=== PATIENT | female | born 1945 | race African-American/Black ===

== ENCOUNTER 2017-07-14 13:43 | Emergency (ER) | payer BC, MEDICARE ==
[~2017-07-14 13:43] MED LIST: ISOVUE-370 76%-LOCM 1 ML ONE
[2017-07-14 14:09] LABS: #Basophils 0.1 thou/uL (0.0-0.2); #Eosinphils 0.2 thou/uL (0.0-0.7); #Lymphocytes 3.3 thou/uL (1.20-3.40); #Monocytes 0.5 thou/uL (0.11-0.59); #Neutrophils 3.8 thou/uL (1.40-6.50); %Eosinophils 2.9 % (0.0-10.0); %Lymphocytes 41.8 % (21.0-51.0); %Monocytes 5.9 % (0.0-10.0); Hematocrit 36.8 % (36.0-47.0); Mean Platelet Volume 7.8 fL (7.4-10.4); Red Blood Cell (RBC) Count 3.97 mill/uL (4.20-5.40); White Blood Cell (WBC) Count 7.8 thou/uL (4.8-10.8)
[2017-07-14 14:35] LABS: ALT (SGPT) 8 U/L (8-55); AST (SGOT) 15 U/L (5-34); Alkaline Phosphatase 71 U/L (40-150); Anion Gap 10 mmol/L (10-20); BUN (Urea Nitrogen) 13 mg/dL (9.8-20.1); Bilirubin, Total 0.3 mg/dL (0.2-1.2); Calc. Creatinine Clearance 0 mL/min (70-130); Calcium 9.6 mg/dL (7.8-10.44); Carbon Dioxide 26 mmol/L (23-31); Chloride 103 mmol/L (98-107); Estimated GFR-MDRD Greater than 90; Globulin 4.4 g/dL (2.4-3.5); Lipase 29 U/L (8-78); Protein, Total 8.3 g/dL (6.0-8.3)
[2017-07-14 15:21] LABS: Bilirubin Negative (Negative); Blood, Urine Negative (Negative); Glucose, Urine (Dipstick) Negative (Negative); Ketone, Urine Negative (Negative); Nitrite Negative (Negative); Protein, Urine (Dipstick) Negative (Neg-Trace); Urobilinogen 0.2 mg/dL (0.2-1.0)
[2017-07-14 15:22] LABS: Bacteria/HPF 1+ HPF (None Seen); Hyaline Casts/LPF 0-3 HYALINE CAST LPF (0-3 Hyaline); RBC/HPF 0-3 HPF (0-3); WBC/HPF 0-3 HPF (0-3)
--- NOTE | 2017-07-14 17:10 | CT ---
CT ABDOMEN AND PELVIS WITH IV CONTRAST: 07/14/17 HISTORY: Right lower quadrant pain. FINDINGS: The lung bases are unremarkable. The patient is post cholecystectomy and hysterectomy and left hip r eplacement. No free air, free fluid or lymphadenopathy is seen in the abdomen or pelvis. The liver, spleen, pancreas, adrenal glands and kidneys are normal. A normal appearing appendix is present. There is colonic diverticulosis. There is fecal material in the colon and rectum. There are vascular calcifications without evidence of aneurysmal dilatation of the abdominal aorta. There are degenerative changes in the spine. IMPRESSION: 1. No CT evidence of appendicitis. 2. Colonic diverticulosis. POS: [facility]
[2017-07-14] MEDS ORDERED: traMADol HCl 50 MG TAB ONE (18:02)
== END 2017-07-14 18:18 | disposition home or self-care (01) ==
LOC: ERS 13:43
DX: R19.03 Right lower quadrant abdominal swelling, mass and lump (principal); I10 Essential (primary) hypertension; Z79.82 Long term (current) use of aspirin; Z79.899 Other long term (current) drug therapy
CPT/HCPCS: 36415; 74177; 80053; 81003; 81015; 83690; 85025; 87086; 96360; 96361

== ENCOUNTER 2018-03-07 12:13 | Outpatient (CLI) | payer MEDICARE ==
--- NOTE | 2018-03-07 14:39 | RAD ---
PA AND LATERAL VIEWS CHEST: HISTORY: Preop evaluation. FINDINGS: Comparison is made with the exam of 01/13/13. The heart size is borderline. The aorta is tortuous. The lungs are well expanded without focal area s of consolidation, pneumothorax, aneudy pulmonary edema, or pleural effusions. There are degenerativ e changes in the spine. IMPRESSION: No radiographic evidence of acute cardiopulmonary process. POS: [facility]
[2018-03-07 15:19] LABS: Bilirubin Negative (Negative); Blood, Urine Negative (Negative); Clarity CLEAR (Clear); Glucose, Urine (Dipstick) Negative (Negative); Leukocyte Trace (Negative); Nitrite Negative (Negative); Protein, Urine (Dipstick) Negative (Neg-Trace); Specific Gravity, Urine 1.005 (1.002-1.036); Urobilinogen 0.2 mg/dL (0.2-1.0); pH, Urine 7.5 (5.0-9.0)
[2018-03-07 15:27] LABS: Bacteria/HPF None Seen HPF (None Seen); Hyaline Casts/LPF 0-3 HYALINE CAST LPF (0-3 Hyaline); RBC/HPF 0-3 HPF (0-3); Squamous Epithelial None Seen HPF (0-3); WBC/HPF None Seen HPF (0-3)
== END 2018-03-07 12:14 | disposition home or self-care (01) ==
LOC: LABBT 12:13
PROVIDERS: ATTEND Orthopaedic Surgery
DX: Z01.818 Encounter for other preprocedural examination (principal); M16.11 Unilateral primary osteoarthritis, right hip
CPT/HCPCS: 71046; 81001; 87081; 93005; 93010

== ENCOUNTER 2018-03-07 13:15 | Inpatient (IN) | payer MEDICARE ==
[2018-03-07 12:52] VITALS: BMI 33.2
[2018-03-19] MEDS ORDERED: Sodium Chloride 0.9% 100 ML ONE (05:58)
[2018-03-19] MEDS ORDERED: CEFAZOLIN/Water 2 GM/20 ML SYRINGE ONE (05:58)
[2018-03-19] MEDS ORDERED: Vancomycin HCl 1.5 GM in Sodium Chloride 0.9% 250 ML 300 ML IVPB SCH (06:00)
[2018-03-19] MEDS ORDERED: Midazolam HCl 2 mg/2 ml Vial ONE (06:24)
[2018-03-19] MEDS ORDERED: Fentanyl 100 MCG/2 ML VIAL ONE (06:24)
[2018-03-19] MEDS ORDERED: Zolpidem Tartrate 5 MG TAB PO PRN ×3 (07:01→12:53)
[2018-03-19] MEDS ORDERED: diphenhydrAMINE 25 MG CAP PO PRN ×3 (07:01→12:53)
[2018-03-19] MEDS ORDERED: Fentanyl 100 MCG/2 ML VIAL SLOW IVP PRN ×2 (07:01)
[2018-03-19] MEDS ORDERED: Promethazine HCl 25 MG/ML VIAL IM PRN ×4 (07:01→12:53)
[2018-03-19] MEDS ORDERED: Acetaminophen 325 MG TAB PO PRN (07:01)
[2018-03-19] MEDS ORDERED: traMADol HCl 50 MG TAB PO PRN (07:01)
[2018-03-19] MEDS ORDERED: Ondansetron HCl/PF 4 MG/2 ML Vial IVP PRN ×4 (07:01→12:53)
[2018-03-19] MEDS ORDERED: oxyCODONE/Acetaminophen 5 mg/325 mg Tablet PO PRN ×2 (07:04)
[2018-03-19] MEDS ORDERED: Docusate 100 MG CAP PO PRN (07:09)
[2018-03-19] MEDS ORDERED: Bupivacaine/Epinephrine 0.25% 30 ML VIAL ONE (07:10)
[2018-03-19] MEDS ORDERED: fentaNYL Citrate/PF 1,250 MCG, Bupivacaine 25 ML in Sodium Chloride 0.9% 250 ML 200 ML EPIDURAL SCH (07:15)
[2018-03-19] MEDS ORDERED: Hydrocerin (Eucerin) Cream 120 gm Jar TOP PRN (07:15)
[2018-03-19] MEDS ORDERED: diphenhydrAMINE 50 MG/ML VIAL IM PRN (07:15)
[2018-03-19] MEDS ORDERED: Naloxone HCl 0.4 mg/ml Vial IVP PRN (07:15)
[2018-03-19] MEDS ORDERED: diphenhydrAMINE 50 MG/ML VIAL IVP PRN (07:15)
[2018-03-19] MEDS ORDERED: Bupivacaine 0.25% 10 ML VIAL EPIDURAL PRN (07:15)
[2018-03-19] MEDS ORDERED: Promethazine HCl 25 MG SUPP PR PRN (07:15)
[2018-03-19] MEDS ORDERED: Naloxone HCl 0.4 mg/ml Vial IV PRN ×2 (07:15→12:53)
[2018-03-19] MEDS ORDERED: Tranexamic Acid 1,000 MG in Sodium Chloride 0.9% 100 ML IVPB SCH (07:15)
[2018-03-19] MEDS ORDERED: Promethazine HCl 25 MG/ML VIAL SLOW IVP PRN (07:46)
[2018-03-19] MEDS ORDERED: Multivit, Therapeutic 1 TAB PO SCH (09:00)
[2018-03-19] MEDS ORDERED: VERAPAMIL HCL PO SCH (09:00)
--- NOTE | 2018-03-19 09:17 | OP ---
DATE OF PROCEDURE: 03/19/2018 PREOPERATIVE DIAGNOSIS: End-stage bicompartmental osteoarthritis of right hip. POSTOPERATIVE DIAGNOSIS: End-stage bicompartmental osteoarthritis of right hip. OPERATIVE PROCEDURE: Press-Fit right total hip arthroplasty. SURGEON: Simone Ahn M.D. HOME HEALTH CAREGIVER: Neftali Garcia PA-C. ANESTHESIA: General via endotracheal tube augmented with indwelling epidural. COMPONENTS USED: [facility], primary Trident PSL Press-Fit cluster acetabular shell, 48 mm outer diameter, 36 mm 0-degree polyethylene fixed bearing insert, and standard offset V40 metallic fe moral head with an Accolade Press-Fit size 1 hip stem. ESTIMATED BLOOD LOSS: 250 mL. FINDINGS: End-stage severe degenerative bicompartmental disease, bone on bone arthrosis, periarticul ar osteophyte formation, large serous effusion. DRAINS: None. SPECIMENS: None. COMPLICATIONS: None. COUNTS: Correct. INDICATIONS FOR SURGERY: Kim is a 73-year-old -[place] female who has had progressive rig ht hip, groin and thigh pain amplified with standing and walking for the last 5-7 years. She has rosalio led conservative management and would like to proceed with total hip arthroplasty as definitive treat ment of pain. PROCEDURE IN DETAIL: After informed consent was obtained in the preoperative holding area, the patie nt was taken to the operative suite where general anesthesia was induced. The patient was then posit ioned in the lateral decubitus position. The hip was then prepped and draped in usual sterile fashio n. The patient received preoperative antibiotics. Prior to incision, time-out was called and all me mbers of the surgical team agreed upon site, surgeon, and patient. After this, a longitudinal incisi on was made directly over the trochanter, noted by palpation extending 2 fingerbreadths above and bel ow the trochanter. The deeper subcutaneous layer was undermined with Bovie electrocautery. The ilio tibial band was encountered and incised sharply and the plane below this was developed bluntly. A jerome retractor was placed to hold this opened. The lateral aspect of the trochanter and the abduct or muscles were encountered and then reflected anteriorly off the trochanter using Bovie electrocaute ry. Once this was completed, the anterior capsule was then encountered and identified and copious ca psulotomy was carried out, exposing the femoral neck and head. Dislocation maneuver was then performe d and an in situ provisional neck cut was then made using the oscillating saw. Attention was then tu rned to acetabular preparation and sequential reaming was carried out up to the appropriate diameter and a trial was then malleted into place with good firm resistance and no pullout. The permanent valentina tabular shell was then malleted squarely into place, as was the appropriate liner. Once completed, t he wound was copiously irrigated and attention was then turned to femoral preparation. Flexion and ex ternal rotation was performed of the exposed thigh and femoral elevators were then placed at the prox imal aspect of the wound. Canal finder was used to establish the length of the canal and sequential reaming was carried out, followed by broaching. Once the appropriate stability was established with the trial broaches with both flexion, extension and rotational stability, we did trial with neutral a nd 2 mm offset incremental necks. Once the appropriate size was decided upon, with good stability no abigail with flexion, extension, internal and external rotation and shuck being negative, we removed the femoral trial broach and malletted into place the permanent prosthesis with good firm fit, which was also stable to rotation. Again, the hip felt very stable to flexion, extension, internal and externa l rotation. Leg lengths appeared near anatomic clinically and we were quite happy with prosthesis pl acement. Copious irrigation was then carried out through the entirety of the wound. Primary closure of the abductors was accomplished with interrupted #2 Vicryl [id number] stitches and the IT ban d was then closed with interrupted #2 Vicryl, oversewn with a #2 running barbed Quill stitch. Subcut aneous fascia was closed with running barbed Quill stitch and a subcuticular Monocryl barbed Quill st itch was used for skin closure and augmented with skin cement. A sterile dressing was applied. The p rocedure was terminated without any complication. All counts were correct. The patient was awakened in the operative suite and taken to the recovery room in stable condition.
[2018-03-19] MEDS: traMADol HCl 50 MG TAB PO PRN (10:18)
[2018-03-19] MEDS: Sodium Chloride 0.9% 1,000 ML IV SCH ×2 (10:23→18:10)
[2018-03-19] MEDS: Atenolol 50 MG TAB PO SCH (10:25)
[2018-03-19] MEDS: Hydrochlorothiazide 25 MG TAB PO SCH (10:25)
[2018-03-19] MEDS: Calcium Carbonate + Vit D 1 TAB PO SCH (10:25)
[2018-03-19] MEDS: Multivitamin W/ Minerals 1 TAB PO SCH (10:25)
[2018-03-19] MEDS: Ferrous Gluconate 324 MG TAB PO SCH ×2 (10:25→19:56)
[2018-03-19] MEDS: Verapamil SR 120 MG TAB PO SCH (10:26)
[2018-03-19] MEDS: Senokot S 8.6-50 MG TAB PO SCH ×2 (10:26→19:56)
--- NOTE | 2018-03-19 10:54 | RAD ---
RIGHT HIP TWO VIEWS: HISTORY: Postop total hip. COMPARISON: None. FINDINGS: Satisfactory appearance of right hip arthroplasty with expected postoperative gas and edema. IMPRESSION: Satisfactory appearance right hip arthroplasty. POS: [facility]
[2018-03-19] MEDS ORDERED: diphenhydrAMINE 50 MG/ML VIAL IM/IV PRN (12:53)
[2018-03-19] MEDS ORDERED: fentaNYL Citrate/PF 2,000 MCG in Sodium Chloride 0.9% 60 ML IV PRN (12:53)
[2018-03-19] MEDS ORDERED: Ketorolac Tromethamine 30 MG/ML VIAL IVP PRN ×2 (12:53)
--- NOTE | 2018-03-19 13:04 | CON-2 ---
DATE OF CONSULTATION: 03/19/2018 TIME: 12:20 CODE STATUS: Full. PRIMARY CARE PHYSICIAN: Liz Mejia M.D. ATTENDING: Atul De La Rosa M.D. RESIDENT: Óscar Humphries M.D. HISTORIAN: The patient and family. CHIEF COMPLAINT: Consult for medical management. HISTORY OF PRESENT ILLNESS: This is a 73-year-old female who had progressive right hip, groin and th igh pain that has been worsening with standing or walking over the past 5-7 years. She has been jani ged conservatively, but at this time wanted to proceed with total hip arthroplasty for definitive davide atment of her pain. The patient today had a right hip replacement that was not complicated with gilmar mated blood loss of 230 mL with the finding during the surgery of end-stage severe degenerative bicom partmental disease with [id number] arthrosis with periarticular osteophyte formation and large sero us effusion. PROCEDURE IN DETAIL: After completion of surgery, she was moved to the PACU where she recovered well . Total fluids given during surgery was 1500 mL of lactated Ringer. After awaking, she was observed and then moved to the surgical floor. At this time, when she was seen in the surgical floor, she st ates that her pain feels under control and her pain felt only in her right hip and that it was curren tly a 10/10, but she is getting medication for it currently. PAST MEDICAL HISTORY: 1. Elevated BMI. 2. Osteoarthritis of knee and hips. 3. Gastroesophageal reflux disease. 4. Mixed hyperlipidemia. 5. Essential hypertension. PAST SURGICAL HISTORY: 1. Bilateral knee replacement. 2. Left hip surgery. 3. Hysterectomy. 4. Cholecystectomy. ALLERGIES: 1. TYLENOL. 2. IBUPROFEN. 3. LYRICA. MEDICATIONS: 1. Tramadol 50 mg by mouth every 8 hours as needed for pain. 2. Pantoprazole 40 mg tablet by mouth daily. 3. Multivitamin by mouth once daily. 4. Calcium carbonate and vitamin D 1 tablet by mouth daily. 5. Fish oil 1000 mg oral capsule by mouth daily. 6. Aspirin 81 mg p.o. by mouth daily. 7. Verapamil ER 120 mg oral tablet extended release. 8. HCTZ 25 mg tablet by mouth daily. 9. Atenolol 50 mg oral tablet by mouth daily. FAMILY HISTORY: The patient endorses a family history of hypertension. SOCIAL HISTORY: Denies tobacco, alcohol or drug use. The patient currently lives at home, is [place]. Her baseline status is that she was able to take care of all of her activities of daily living [facility] assistance and she has 5 children. REVIEW OF SYSTEMS: General: Denies, fever or chills. Does endorse fatigue at the moment. Eyes: D enies vision change. ENT: Denies nasal congestion, sore throat. Respiratory: Denies cough, conges tion, shortness of breath. Cardiovascular: Denies chest pain, palpitations. Gastrointestinal: End orses nausea, but denies vomiting or having a bowel movement yet. Genitourinary: Denies dysuria. S kin: Denies rash or itching. Musculoskeletal: Endorses right hip pain that is localized in the hip , aching, currently 10/10 pain, but the patient is receiving medication at this time for it. Neurolo gic: Endorses mild weakness in right leg. Psychiatric: Denies anxiety or depression. PHYSICAL EXAMINATION: VITAL SIGNS: Temperature 97.5, pulse 61, respirations 16, O2 99% on room air, blood pressure 119/74. GENERAL: Alert, oriented x3, not in acute distress and appropriately interactive. EYES: Conjunctivae within normal limits. ENT: Nasal mucosa and oropharynx are moist. NECK: Supple without lymphadenopathy. CARDIOVASCULAR: Regular rate and rhythm with no obvious murmur or gallops. RESPIRATORY: Normal effort without retractions. Clear to auscultation bilaterally. SKIN: Warm and dry without obvious lesion on her right hip at the incision site. There is no active bleeding noted and it is managed at this time. ABDOMEN: Soft, not tender to palpation. Bowel sounds heard throughout. No mass or distension felt. EXTREMITIES: No edema present. MUSCULOSKELETAL: Structure within normal limits. Muscle strength is 5/5 on left side, but 4/5 in lo wer extremities secondary to pain. NEUROLOGIC: No focal deficit observed. PSYCHIATRIC: Appropriate. LABORATORY DATA: Most recent labs taken on 03/13/2018, 1. WBC 7.7, hemoglobin 12.4, hematocrit 37.1, platelets 240,000. 2. Coags, PT 13.2, INR 1. 3. Potassium 3.5, sodium 139, chloride 104, bicarbonate 26, BUN 16, creatinine 0.74, glucose 110, ph osphorus 3.6, magnesium 1.9, calcium 9.7. 4. Urine, normal urine, pertinent only for trace leukocyte esterase. ASSESSMENT AND PLAN: 1. End-stage bicompartmental osteoarthritis of right hip, now status post right total hip arthroplas ty. Plan for ortho is that the patient is to work with rehab today to regain function of the right h ip. As for pain control, she is currently status post surgery day 0. She feels that the pain is 10/ 10 right now, but she has not received any medication yet on the floor, so we will reassess her pain level after she starts receiving p.r.n. pain medications. Incision site appears clean and we will or julio labs and continue to evaluate the surgical site for any sign of developing infection. 2. Gastroesophageal reflux disease. We will continue home pantoprazole. 3. Mixed hyperlipidemia. We will continue fish oil. 4. Essential hypertension. We will currently observe her blood pressure status post surgery and res tart her home medication of hydrochlorothiazide, atenolol and verapamil either late today or early to reginaldo. DISPOSITION AND LENGTH OF HOSPITAL STAY: Disposition and hospital length of stay will be discussed w ith Surgery, but the patient may possibly go home with either Home Health or to inpatient rehabilitat ion. Symptomatic medication will be provided and this history and physical exam as well as managemen t has been discussed with Dr. Atul De La Rosa.
[2018-03-19] MEDS ORDERED: Ondansetron HCl/PF 4 MG/2 ML Vial ONE (13:11)
[2018-03-19] MEDS ORDERED: Lidocaine 1% PF 5 ML VIAL ONE (13:11)
[2018-03-19] MEDS ORDERED: PROPOFOL 200 MG/20 ML VIAL ONE (13:11)
[2018-03-19] MEDS ORDERED: PHENYLEPHRINE-NS 100 MCG/ML 10 ML SYRINGE ONE (13:11)
[2018-03-19] MEDS: CEFAZOLIN/Water 2 GM/20 ML SYRINGE SLOW IVP SCH ×2 (13:58→21:47)
[2018-03-19] MEDS: Bupivacaine 10 ML in Sodium Chloride 0.9% 90 ML IM SCH (14:03)
[2018-03-19] MEDS ORDERED: Ketorolac Tromethamine 30 MG/ML VIAL IVP SCH ×2 (18:00)
--- NOTE | 2018-03-19 20:49 | PDOC.EVN ---
Event Note - Event Note Event Note: Patient seen and examined. Case discussed with Dr. Humphries and his consult note reviewed and repeated by me. Agree with A/P as documented in dictation. Patient is well known to me as I am her PCP. She is post-op day 0 from R hip replacement. She has well controlled HTN, HLD, GERD. Will restart her home meds. Pain control from ortho. Will follow along with you.
[2018-03-20] MEDS: Bupivacaine 10 ML in Sodium Chloride 0.9% 90 ML IM SCH ×2 (00:19→13:02)
[2018-03-20] MEDS: Sodium Chloride 0.9% 1,000 ML IV SCH ×2 (02:42→15:30)
[2018-03-20 04:49] LABS: Hemoglobin 9.9 g/dL (12.0-16.0); Mean Corpuscular HGB CONC 33.9 g/dL (32.0-36.0); Mean Corpuscular Hemoglobin 30.8 pg (27.0-31.0); Mean Corpuscular Volume 90.9 fl (81.0-99.0); Mean Platelet Volume 7.4 fL (7.4-10.4); Platelet Count 188 thou/uL (130-400); RBC Distribution Width 12.3 % (11.5-14.5); Red Blood Cell (RBC) Count 3.23 mill/uL (4.20-5.40); White Blood Cell (WBC) Count 11.3 thou/uL (4.8-10.8)
[2018-03-20] MEDS: Atenolol 50 MG TAB PO SCH (07:57)
[2018-03-20] MEDS: Senokot S 8.6-50 MG TAB PO SCH ×2 (07:58→23:25)
[2018-03-20] MEDS: Ferrous Gluconate 324 MG TAB PO SCH ×2 (07:59→23:25)
[2018-03-20] MEDS: Multivitamin W/ Minerals 1 TAB PO SCH (07:59)
[2018-03-20] MEDS: Verapamil SR 120 MG TAB PO SCH (07:59)
[2018-03-20] MEDS: Calcium Carbonate + Vit D 1 TAB PO SCH (07:59)
[2018-03-20] MEDS: Hydrochlorothiazide 25 MG TAB PO SCH (07:59)
--- NOTE | 2018-03-20 08:36 | PDOC.FM ---
- Subjective Subjective: There is borderline fever last night, high of 100.4F. However, patient denies SOB, diarrhea or pain except from surgery. She endorses working with physical therapy. Her pain is under better control. She is eating and tolerating it. She has done some walking. - Objective MAR Reviewed: Yes Vital Signs & Weight: Vital Signs (12 hours) Temp Pulse Resp BP BP Pulse Ox 03/20/18 07:57 82 114/73 03/20/18 07:22 100 F H 82 14 114/73 96 03/20/18 03:05 100.4 F H 90 16 117/64 97 03/19/18 23:39 100.2 F H 87 16 100/59 L 94 L Weight Weight 93.44 kg I&O: 03/19/18 03/20/18 03/21/18 06:59 06:59 06:59 Intake Total 1380 Output Total 1050 Balance 330 Result Diagrams: 03/20/18 03:53 <Óscar Humphries - Last Filed: 03/20/18 10:33> - Objective Vital Signs & Weight: Vital Signs (12 hours) Temp Pulse Resp BP BP Pulse Ox 03/20/18 11:35 100 F H 78 16 102/67 97 03/20/18 08:00 100.0 F H 82 14 96 03/20/18 07:57 82 114/73 03/20/18 07:22 100 F H 82 14 114/73 96 03/20/18 03:05 100.4 F H 90 16 117/64 97 Weight Weight 93.44 kg I&O: 03/19/18 03/20/18 03/21/18 06:59 06:59 06:59 Intake Total 1380 Output Total 1050 Balance 330 Result Diagrams: 03/20/18 03:53 <Atul De La Rosa - Last Filed: 03/20/18 12:14> Phys Exam - Physical Examination Constitutional: NAD HEENT: moist MMs Neck: no nodes, supple Respiratory: no wheezing, no rales, no rhonchi, clear to auscultation bilateral Cardiovascular: RRR, no significant murmur Gastrointestinal: soft, non-tender, positive bowel sounds Musculoskeletal: no edema Neurological: non-focal, moves all 4 limbs Lymphatic: no nodes Psychiatric: A&O x 3 Skin: no rash Deviation from normal: Bandaged hip. No visible discharge. <Óscar Humphries - Last Filed: 03/20/18 10:33> Dx/Plan (1) Status post right hip replacement Code(s): Z96.641 - PRESENCE OF RIGHT ARTIFICIAL HIP JOINT Status: Acute Plan: Pain better tolerated now. Patient is working with PT and has been able to ambulate. (2) GERD (gastroesophageal reflux disease) Code(s): K21.9 - GASTRO-ESOPHAGEAL REFLUX DISEASE WITHOUT ESOPHAGITIS Status: Acute Plan: Patient on protonix for GERD. Tolerating oral intake. (3) HLD (hyperlipidemia) Code(s): E78.5 - HYPERLIPIDEMIA, UNSPECIFIED Status: Acute Plan: Continue statin. (4) Essential hypertension Code(s): I10 - ESSENTIAL (PRIMARY) HYPERTENSION Status: Acute Plan: BP not elevated and under control during last night. (5) Elevated temperature Code(s): R50.9 - FEVER, UNSPECIFIED Status: Acute Plan: At this time, likely post op changes. No symptom of systemic infection. WIll continue to monitor. Will remove morrison later today. <Óscar Humphries - Last Filed: 03/20/18 10:33> Attending Addendum - Attending Addendum Date/Time: 03/20/18 1212 I personally evaluated the patient and discussed the management with Dr. Humphries. I agree with and repeated the History, Examination, Assessment and Plan documented above with any addition or exceptions noted below. Pt doing well, no n/v/chills/cp/sob/cough/congestion. Low suspicion for UTI currently. Will d/c FC as soon as possible and if continued fevers will culture. IS to bedside. HTN/GERD/HLP all stable and continue medications. DVT ppx per orthopedics. <Atul De La Rosa - Last Filed: 03/20/18 12:14>
[2018-03-20] MEDS ORDERED: Prevnar 13-Val Conj/PF 0.5 ML SYRINGE IM ONE (09:00)
--- NOTE | 2018-03-20 11:24 | PRG ---
DATE OF SERVICE: 03/20/2018 SUBJECTIVE: Kim is a 73-year-old white female who is postop day #1 right total hip arthroplasty. She is doing relatively well. She has very little in the way of complaints. She admits a little bi t more to abdominal discomfort than anything. OBJECTIVE: VITAL SIGNS: Temperature 100 degrees, pulse 82, blood pressure is 114/73, respiratory rate 14, O2 sa turation is 96% on room air. GENERAL: She is alert and oriented to person, place, time, and situation. Grossly nonfocal. NEURO: She is neurovascular intact in both lower extremities. Incision is clean and closed. No gael thema, no strikethrough is identified. Hemoglobin and hematocrit are 9.9 and 29.4. IMPRESSION: 1. A 73-year-old female postop day #1 right total hip arthroplasty. 2. Mild postoperative hemorrhagic anemia. PLAN: Continue current management, recheck tomorrow. The patient and family are desirous of home di scharge probably tomorrow or the next day.
[2018-03-21] MEDS: Bupivacaine 10 ML in Sodium Chloride 0.9% 90 ML IM SCH (01:52)
[2018-03-21] MEDS: Sodium Chloride 0.9% 1,000 ML IV SCH ×3 (03:12→20:29)
[2018-03-21 04:18] LABS: Hemoglobin 9.9 g/dL (12.0-16.0); Mean Corpuscular HGB CONC 34.2 g/dL (32.0-36.0); Mean Corpuscular Hemoglobin 31.5 pg (27.0-31.0); Mean Corpuscular Volume 92.1 fl (81.0-99.0); Mean Platelet Volume 8.1 fL (7.4-10.4); Platelet Count 186 thou/uL (130-400); RBC Distribution Width 12.4 % (11.5-14.5); Red Blood Cell (RBC) Count 3.15 mill/uL (4.20-5.40); White Blood Cell (WBC) Count 14.2 thou/uL (4.8-10.8)
[2018-03-21] MEDS: Multivitamin W/ Minerals 1 TAB PO SCH (09:14)
[2018-03-21] MEDS: Senokot S 8.6-50 MG TAB PO SCH ×2 (09:14→21:53)
[2018-03-21] MEDS: Hydrochlorothiazide 25 MG TAB PO SCH (09:15)
[2018-03-21] MEDS: Atenolol 50 MG TAB PO SCH (09:15)
[2018-03-21] MEDS: Calcium Carbonate + Vit D 1 TAB PO SCH (09:15)
[2018-03-21] MEDS: Ferrous Gluconate 324 MG TAB PO SCH ×2 (09:15→21:47)
[2018-03-21] MEDS: Verapamil SR 120 MG TAB PO SCH (09:15)
--- NOTE | 2018-03-21 09:38 | PDOC.FM ---
- Subjective Subjective: Patient seen today in bed. She says that she feels well except she needs to have a BM. She endorses feeling warm and having knee pain feeling post nasal drippage. She denies chest pain, SOB, diarrhea, or itching. - Objective MAR Reviewed: Yes Vital Signs & Weight: Vital Signs (12 hours) Temp Pulse Resp BP BP BP Pulse Ox 03/21/18 09:15 87 104/68 03/21/18 07:47 99.9 F H 87 14 104/68 97 03/21/18 00:44 100.2 F H 92 20 115/74 93 L Weight Admit Weight 93.44 kg Weight 93.44 kg I&O: 03/20/18 03/21/18 03/22/18 06:59 06:59 06:59 Intake Total 1380 Output Total 1050 1025 Balance 330 -1025 Result Diagrams: 03/21/18 03:31 <Óscar Humphries M - Last Filed: 03/21/18 09:36> - Objective Vital Signs & Weight: Vital Signs (12 hours) Temp Pulse Resp BP BP BP Pulse Ox 03/21/18 09:15 87 104/68 03/21/18 08:00 99.9 F H 87 14 97 03/21/18 07:47 99.9 F H 87 14 104/68 97 03/21/18 00:44 100.2 F H 92 20 115/74 93 L Weight Admit Weight 93.44 kg Weight 93.44 kg I&O: 18 03/21/18 03/22/18 06:59 06:59 06:59 Intake Total 1380 Output Total 1050 1025 Balance 330 -1025 Result Diagrams: 03/21/18 03:31 <Atul De La Rosa - Last Filed: 03/21/18 11:00> Phys Exam - Physical Examination Constitutional: NAD HEENT: moist MMs Neck: no nodes, supple Respiratory: no wheezing, no rales, no rhonchi Cardiovascular: RRR Gastrointestinal: soft, positive bowel sounds Musculoskeletal: no edema Neurological: non-focal, moves all 4 limbs Lymphatic: no nodes Psychiatric: normal affect Skin: no rash <Óscar Humphries - Last Filed: 03/21/18 09:36> Dx/Plan (1) Status post right hip replacement Code(s): Z96.641 - PRESENCE OF RIGHT ARTIFICIAL HIP JOINT Status: Acute Plan: Pain better tolerated now and incision dry and clean appearing. Patient is working with PT and has been able to ambulate. (2) GERD (gastroesophageal reflux disease) Code(s): K21.9 - GASTRO-ESOPHAGEAL REFLUX DISEASE WITHOUT ESOPHAGITIS Status: Acute Plan: Patient on protonix for GERD. Tolerating oral intake. (3) HLD (hyperlipidemia) Code(s): E78.5 - HYPERLIPIDEMIA, UNSPECIFIED Status: Acute Plan: Continue statin. (4) Essential hypertension Code(s): I10 - ESSENTIAL (PRIMARY) HYPERTENSION Status: Acute Plan: BP not elevated and under control during last night. (5) Elevated temperature Code(s): R50.9 - FEVER, UNSPECIFIED Status: Acute Plan: Patient had persistent fever throughout night. May be from continual epidural vs UTI. O2 saturation good with no abnormalities heard on lung exam, no edema in leg, so less likely DVT or pneumonia at this time. Plan to obtain UA and Ucx. <Óscar Humphries - Last Filed: 03/21/18 09:36> Attending Addendum - Attending Addendum Date/Time: 03/21/18 1058 I personally evaluated the patient and discussed the management with Dr. uHmphries. I agree with and repeated the History, Examination, Assessment and Plan documented above with any addition or exceptions noted below. Pt doing well, ambulating well with PT. Pain controlled. No lower urinary symptoms or flank pain. Epidural catheter still in place. FC still in place. Incision c/d/i s e/e. In light of fever will r/o UTI. Low suspicion of DVT and ppx per ortho. Epidural obviously could be a cause. Will continue to monitor. <Atul De La Rosa - Last Filed: 03/21/18 11:00>
[2018-03-21 10:51] LABS: Bilirubin Negative (Negative); Blood, Urine Trace (Negative); Clarity CLEAR (Clear); Glucose, Urine (Dipstick) Negative (Negative); Leukocyte Negative (Negative); Nitrite Negative (Negative); Protein, Urine (Dipstick) Negative (Neg-Trace); Specific Gravity, Urine 1.012 (1.002-1.036); Urobilinogen 0.2 mg/dL (0.2-1.0)
[2018-03-21 10:53] LABS: Bacteria/HPF None Seen HPF (None Seen); Hyaline Casts/LPF 4-6 HYALINE CAST LPF (0-3 Hyaline); Pathc Cast-AUWi Flag 0.58 (0-2.49); Squamous Epithelial 0-3 HPF (0-3); WBC/HPF 0-3 HPF (0-3)
[2018-03-21] MEDS: Naproxen 500 MG TAB PO PRN (22:48)
[2018-03-22 04:17] LABS: Mean Corpuscular HGB CONC 33.7 g/dL (32.0-36.0); Mean Corpuscular Hemoglobin 30.7 pg (27.0-31.0); Mean Corpuscular Volume 90.9 fl (81.0-99.0); Mean Platelet Volume 7.2 fL (7.4-10.4); Platelet Count 177 thou/uL (130-400); RBC Distribution Width 12.1 % (11.5-14.5); Red Blood Cell (RBC) Count 2.94 mill/uL (4.20-5.40); White Blood Cell (WBC) Count 12.3 thou/uL (4.8-10.8)
[2018-03-22] MEDS: Sodium Chloride 0.9% 1,000 ML IV SCH ×2 (08:02→18:54)
--- NOTE | 2018-03-22 08:59 | PDOC.FM ---
- Subjective Subjective: Patient states she's doing well, has been up, had BM, tolerating food. No urination yet, but she just had morrison pulled. She has a epidural still in. Denies SOB, chest pain, abd pain, diarrhea. - Objective Vital Signs & Weight: Vital Signs (12 hours) Temp Pulse Resp BP BP Pulse Ox 03/22/18 07:31 98.6 F 80 16 97/64 97 03/22/18 03:52 98.3 F 77 20 96/58 L 95 03/21/18 23:59 99.8 F H 88 20 94/60 95 Weight Admit Weight 93.44 kg Weight 93.44 kg I&O: 03/21/18 03/22/18 03/23/18 06:59 06:59 06:59 Output Total 1025 1900 20 Balance -1 -1899 - Result Diagrams: 03/22/18 03:57 <Óscar Humphries M - Last Filed: 03/22/18 08:57> - Objective Vital Signs & Weight: Vital Signs (12 hours) Temp Pulse Resp BP BP Pulse Ox 03/22/18 07:31 98.6 F 80 16 97/64 97 03/22/18 03:52 98.3 F 77 20 96/58 L 95 03/21/18 23:59 99.8 F H 88 20 94/60 95 Weight Admit Weight 93.44 kg Weight 93.44 kg I&O: 03/21/18 03/22/18 03/23/18 06:59 06:59 06:59 Output Total 1025 1900 20 Balance -7 -1900 Result Diagrams: 03/22/18 03:57 <Eduardo Van A - Last Filed: 03/22/18 11:00> Phys Exam - Physical Examination Constitutional: NAD HEENT: moist MMs Neck: no nodes Respiratory: no wheezing, no rales, no rhonchi Cardiovascular: RRR, no significant murmur Gastrointestinal: soft, no distention Musculoskeletal: no edema Neurological: non-focal, moves all 4 limbs Lymphatic: no nodes Psychiatric: normal affect, A&O x 3 Skin: no rash Deviation from normal: Clean right hip incision. <Óscar Humphries M - Last Filed: 03/22/18 08:57> Dx/Plan (1) Status post right hip replacement Code(s): Z96.641 - PRESENCE OF RIGHT ARTIFICIAL HIP JOINT Status: Acute Plan: Pain better tolerated now and incision dry and clean appearing. Patient is working with PT and has been able to ambulate. Patient is going home today. (2) GERD (gastroesophageal reflux disease) Code(s): K21.9 - GASTRO-ESOPHAGEAL REFLUX DISEASE WITHOUT ESOPHAGITIS Status: Acute Plan: Patient on protonix for GERD. Tolerating oral intake. (3) HLD (hyperlipidemia) Code(s): E78.5 - HYPERLIPIDEMIA, UNSPECIFIED Status: Acute Plan: Continue statin. (4) Essential hypertension Code(s): I10 - ESSENTIAL (PRIMARY) HYPERTENSION Status: Acute Plan: BP not elevated and under control during last night. (5) Elevated temperature Code(s): R50.9 - FEVER, UNSPECIFIED Status: Acute Plan: Patient had persistent fever throughout night. Likely from continual epidural. UA is negative. Patient O2 sat, BP and pulse are all within normal limit, with no unilateral leg swelling or pain to suggest DVT/PE. <Óscar Humphries - Last Filed: 03/22/18 08:57> Attending Addendum - Attending Addendum Date/Time: 03/22/18 1057 I personally evaluated the patient and discussed the management with Dr. Humphries. I agree with the History, Examination, Assessment and Plan documented above with any addition or exceptions noted below. Kim's record was reviewed. Multiple fever events noted, highest was 102F last night. Fever events are common following Total Joint Replacement surgeries and are not often clinically significant. However, the multiple fever events warrants continued monitoring. UA is negative for LE, Nitrite and WBCs. Patient is asymptomatic from an infectious standpoint. If fevers occur after POC 3 or >102, then further workup is warranted. Will discuss with the surgical team. <Eduardo Van - Last Filed: 03/22/18 11:00>
[2018-03-22] MEDS ORDERED: HYDROcodone/Acetaminophen 10/325 mg Tablet PO PRN ×2 (09:15)
[2018-03-22] MEDS: Atenolol 50 MG TAB PO SCH (09:15)
[2018-03-22] MEDS: Senokot S 8.6-50 MG TAB PO SCH ×2 (09:15→20:33)
[2018-03-22] MEDS: Calcium Carbonate + Vit D 1 TAB PO SCH (09:16)
[2018-03-22] MEDS: Verapamil SR 120 MG TAB PO SCH (09:16)
[2018-03-22] MEDS: Ferrous Gluconate 324 MG TAB PO SCH ×2 (09:16→20:30)
[2018-03-22] MEDS: Hydrochlorothiazide 25 MG TAB PO SCH (09:16)
[2018-03-22] MEDS: Multivitamin W/ Minerals 1 TAB PO SCH (09:17)
[2018-03-22] MEDS: traMADol HCl 50 MG TAB PO PRN ×3 (09:21→23:36)
[2018-03-22] MEDS: Naproxen 500 MG TAB PO PRN (14:49)
[2018-03-23] MEDS: Sodium Chloride 0.9% 1,000 ML IV SCH ×2 (01:32→11:46)
[2018-03-23 05:37] LABS: Hemoglobin 8.9 g/dL (12.0-16.0); Mean Corpuscular HGB CONC 33.7 g/dL (32.0-36.0); Mean Corpuscular Hemoglobin 30.8 pg (27.0-31.0); Mean Corpuscular Volume 91.5 fl (81.0-99.0); Mean Platelet Volume 7.7 fL (7.4-10.4); Platelet Count 219 thou/uL (130-400); RBC Distribution Width 12.3 % (11.5-14.5); Red Blood Cell (RBC) Count 2.87 mill/uL (4.20-5.40)
--- NOTE | 2018-03-23 07:48 | PDOC.FM ---
- Subjective Subjective: Patient feels well. Endorses eating, walking and pain under control. Denied fever, sob, diarrhea. Did not get any antipyretic last night. - Objective MAR Reviewed: Yes Vital Signs & Weight: Vital Signs (12 hours) Temp Pulse Resp BP Pulse Ox 03/23/18 04:24 98.7 F 95 20 114/74 96 03/23/18 00:40 98.5 F 79 20 101/64 97 03/22/18 20:34 81 104/67 03/22/18 20:00 98.6 F 81 20 03/22/18 19:57 98.6 F 75 20 93/59 L 95 Weight Admit Weight 93.44 kg Weight 93.44 kg I&O: 03/22/18 03/23/18 03/24/18 06:59 06:59 06:59 Intake Total 1380 Output Total 1900 20 Balance -1900 1360 Result Diagrams: 03/23/18 05:06 <Óscar Humphries M - Last Filed: 03/23/18 07:46> - Objective Vital Signs & Weight: Weight Admit Weight 93.44 kg Weight 93.44 kg I&O: 03/23/18 03/24/18 03/25/18 06:59 06:59 06:59 Intake Total 1380 420 Output Total 20 Balance 1360 420 Result Diagrams: 03/23/18 05:06 <Eduardo Van - Last Filed: 03/24/18 10:42> Phys Exam - Physical Examination Constitutional: NAD HEENT: moist MMs Neck: no nodes, supple Respiratory: no wheezing, no rales, no rhonchi, clear to auscultation bilateral Cardiovascular: RRR, no significant murmur Gastrointestinal: soft, non-tender Musculoskeletal: no edema Neurological: non-focal, moves all 4 limbs Lymphatic: no nodes Psychiatric: normal affect Skin: no rash <Óscar Humphries - Last Filed: 03/23/18 07:46> Dx/Plan (1) Status post right hip replacement Code(s): Z96.641 - PRESENCE OF RIGHT ARTIFICIAL HIP JOINT Status: Acute Plan: Pain better tolerated now and incision dry and clean appearing. Patient is working with PT and has been able to ambulate. Patient is going home today. (2) GERD (gastroesophageal reflux disease) Code(s): K21.9 - GASTRO-ESOPHAGEAL REFLUX DISEASE WITHOUT ESOPHAGITIS Status: Acute Plan: Patient on protonix for GERD. Tolerating oral intake. (3) HLD (hyperlipidemia) Code(s): E78.5 - HYPERLIPIDEMIA, UNSPECIFIED Status: Acute Plan: Continue home statin. (4) Essential hypertension Code(s): I10 - ESSENTIAL (PRIMARY) HYPERTENSION Status: Acute Plan: BP not elevated and under control during last night. (5) Elevated temperature Code(s): R50.9 - FEVER, UNSPECIFIED Status: Acute Plan: Resolved. Epidural removed yesterday. Has not had fever overnight. O2, respiration, pulse within normal limit and UA clean. Likely epidural related vs atelectasis. <Óscar Humphries - Last Filed: 03/23/18 07:46> Attending Addendum - Attending Addendum Date/Time: 03/24/18 1025 I personally evaluated the patient and discussed the management with Dr. Humphries on . I agree with the History, Examination, Assessment and Plan documented above with any addition or exceptions noted below. <Eduardo Van - Last Filed: 03/24/18 10:42>
[2018-03-23 08:59] VITALS: BP 113/74; TEMP 98.5
[2018-03-23] MEDS: Hydrochlorothiazide 25 MG TAB PO SCH (09:39)
[2018-03-23] MEDS: Senokot S 8.6-50 MG TAB PO SCH (09:40)
[2018-03-23] MEDS: Ferrous Gluconate 324 MG TAB PO SCH (09:40)
[2018-03-23] MEDS: Calcium Carbonate + Vit D 1 TAB PO SCH (09:40)
[2018-03-23] MEDS: Multivitamin W/ Minerals 1 TAB PO SCH (09:41)
[2018-03-23] MEDS: Atenolol 50 MG TAB PO SCH (09:41)
[2018-03-23] MEDS: Verapamil SR 120 MG TAB PO SCH (09:43)
== END 2018-03-23 12:15 | disposition home health service (06) | DRG 470 ==
LOC: SJJU 03-19 05:31
PROVIDERS: ADMIT Orthopaedic Surgery; ATTEND Orthopaedic Surgery
PROC: 0SR902A Replacement of Right Hip Joint with Metal on Polyethylene Synthetic Substitute, Uncemented, Open Approach (ICD-10-PCS; principal; 2018-03-19)
DX: M16.11 Unilateral primary osteoarthritis, right hip (principal); D62 Acute posthemorrhagic anemia; M25.751 Osteophyte, right hip; R50.82 Postprocedural fever; M25.451 Effusion, right hip; I10 Essential (primary) hypertension; K21.9 Gastro-esophageal reflux disease without esophagitis; Z96.653 Presence of artificial knee joint, bilateral; E78.2 Mixed hyperlipidemia; Z96.642 Presence of left artificial hip joint; Z79.899 Other long term (current) drug therapy; Z90.710 Acquired absence of both cervix and uterus; Z79.82 Long term (current) use of aspirin; Z88.8 Allergy status to other drugs, medicaments and biological substances; Z83.3 Family history of diabetes mellitus; Z82.49 Family history of ischemic heart disease and other diseases of the circulatory system; Z90.49 Acquired absence of other specified parts of digestive tract; Z88.6 Allergy status to analgesic agent
CPT/HCPCS: 36415; 81003; 81015; 85027; 86850; 86870; 86900; 86901; 86922; 87086; 90471; 90670; C1776; G0009; G8978-GP-CL; G8979-GP-CJ; G8987-GO-CK; G8988-GO-CJ; J2001; J2250; J2405; J2704; J3010; J3370; J3490; J7050

== ENCOUNTER 2018-03-13 08:35 | Outpatient (CLI) | payer MEDICARE ==
[2018-03-13 09:08] LABS: #Eosinphils 0.3 thou/uL (0.0-0.7); #Monocytes 0.5 thou/uL (0.11-0.59); %Basophils 0.6 % (0.0-1.0); %Eosinophils 3.4 % (0.0-10.0); %Lymphocytes 38.8 % (21.0-51.0); %Monocytes 6.1 % (0.0-10.0); %Neutrophils 51.2 % (42.0-75.0); Hemoglobin 12.4 g/dL (12.0-16.0); Mean Corpuscular HGB CONC 33.3 g/dL (32.0-36.0); Mean Corpuscular Hemoglobin 30.4 pg (27.0-31.0); Mean Corpuscular Volume 91.2 fl (81.0-99.0); Mean Platelet Volume 7.5 fL (7.4-10.4); Platelet Count 240 thou/uL (130-400); RBC Distribution Width 12.6 % (11.5-14.5); Red Blood Cell (RBC) Count 4.07 mill/uL (4.20-5.40); White Blood Cell (WBC) Count 7.7 thou/uL (4.8-10.8)
[2018-03-13 09:11] LABS: Prothrombin Time 13.2 SEC (12.0-14.7)
[2018-03-13 09:24] LABS: Anion Gap 13 mmol/L (10-20); BUN (Urea Nitrogen) 16 mg/dL (9.8-20.1); Calc. Creatinine Clearance 0 mL/min (70-130); Calcium 9.7 mg/dL (7.8-10.44); Carbon Dioxide 26 mmol/L (23-31); Chloride 104 mmol/L (98-107); Estimated GFR-MDRD Greater than 90; Glucose 110 mg/dL (83-110); Potassium 3.9 mmol/L (3.5-5.1); Sodium 139 mmol/L (136-145)
== END 2018-03-13 08:36 | disposition home or self-care (01) ==
LOC: LABBT 08:35
PROVIDERS: ATTEND Orthopaedic Surgery
DX: Z01.818 Encounter for other preprocedural examination (principal); M16.11 Unilateral primary osteoarthritis, right hip
CPT/HCPCS: 80048; 85025; 85610

== ENCOUNTER 2018-03-18 08:54 | Outpatient (CLI) | payer MEDICARE, OTHER | END 2018-03-18 08:55 | disposition home or self-care (01) | LOC: LABBT 08:54 | PROVIDERS: ATTEND Orthopaedic Surgery | DX: Z01.818 Encounter for other preprocedural examination (principal); M16.11 Unilateral primary osteoarthritis, right hip | CPT/HCPCS: 86850; 86870; 86900; 86901; 86922 ==

== ENCOUNTER 2018-06-19 10:56 | Emergency (ER) | payer MEDICARE ==
[2018-06-19 11:46] LABS: #Basophils 0.1 thou/uL (0.0-0.2); #Eosinphils 0.2 thou/uL (0.0-0.7); #Lymphocytes 2.9 thou/uL (1.20-3.40); #Monocytes 0.6 thou/uL (0.11-0.59); #Neutrophils 4.2 thou/uL (1.40-6.50); %Basophils 0.9 % (0.0-1.0); %Eosinophils 2.4 % (0.0-10.0); %Lymphocytes 36.2 % (21.0-51.0); %Monocytes 7.8 % (0.0-10.0); %Neutrophils 52.7 % (42.0-75.0); Hemoglobin 11.9 g/dL (12.0-16.0); Mean Corpuscular HGB CONC 32.3 g/dL (32.0-36.0); Mean Corpuscular Hemoglobin 28.1 pg (27.0-31.0); Mean Corpuscular Volume 86.8 fL (78.0-98.0); Mean Platelet Volume 7.8 fL (7.4-10.4); Platelet Count 310 thou/uL (130-400); RBC Distribution Width 14.6 % (11.5-14.5); Red Blood Cell (RBC) Count 4.24 mill/uL (4.20-5.40); White Blood Cell (WBC) Count 8.1 thou/uL (4.8-10.8)
[2018-06-19 12:11] LABS: ALT (SGPT) 11 U/L (8-55); AST (SGOT) 19 U/L (5-34); Albumin 3.9 g/dL (3.4-4.8); Alkaline Phosphatase 69 U/L (40-150); Anion Gap 13 mmol/L (10-20); BUN (Urea Nitrogen) 13 mg/dL (9.8-20.1); Bilirubin, Total 0.5 mg/dL (0.2-1.2); Calc. Creatinine Clearance 0 mL/min (70-130); Calcium 9.4 mg/dL (7.8-10.44); Carbon Dioxide 23 mmol/L (23-31); Chloride 105 mmol/L (98-107); Estimated GFR-MDRD Greater than 90; Globulin 5.1 g/dL (2.4-3.5); Glucose 104 mg/dL (83-110); Potassium 3.2 mmol/L (3.5-5.1); Sodium 138 mmol/L (136-145)
== END 2018-06-19 12:19 | disposition home or self-care (01) ==
LOC: ERS 10:56
DX: K62.5 Hemorrhage of anus and rectum (principal); I10 Essential (primary) hypertension; Z79.899 Other long term (current) drug therapy; Z79.82 Long term (current) use of aspirin
CPT/HCPCS: 36415; 80053; 85025; 86850; 86870; 86900; 86901; 99283

== ENCOUNTER 2018-12-03 08:26 | Outpatient (CLI) | payer MEDICARE ==
--- NOTE | 2018-12-03 09:41 | BD ---
DEXA BONE DENSITY STUDY: Date: 12/03/18 HISTORY: 73-year-old postmenopausal female for screening for osteoporosis. FINDINGS: Lumbar Spine: BMD (g/cm2) L1 0.970 T-Score: -0.2 L2 1.129 T-Score: 0.9 L3 1.392 T-Score: 2.8 L4 1.752 T-Score: 6.3 L1-L4 1.321 T-Score: 2.5 Right Forearm: Distal 1/3 0.740 T-Score: 0.8 Total Distal 0.627 T-Score: 0.9 IMPRESSION: Normal bone mineral density. The bone density in the spine may be artifactually elevated given the de generative changes in the lumbar spine. POS: [facility]
== END 2018-12-03 08:27 | disposition home or self-care (01) ==
LOC: BICMAMMO 08:26
PROVIDERS: ATTEND Family Medicine
DX: Z12.31 Encounter for screening mammogram for malignant neoplasm of breast (principal); Z13.820 Encounter for screening for osteoporosis; R92.1 Mammographic calcification found on diagnostic imaging of breast; I10 Essential (primary) hypertension; Z78.0 Asymptomatic menopausal state
CPT/HCPCS: 77063; 77067; 77080

== ENCOUNTER 2018-12-18 12:50 | Observation (INO) | payer MEDICARE ==
--- NOTE | 2018-12-18 13:22 | RAD ---
PORTABLE CHEST 1 VIEW: DATE: 12/18/2018. TIME: 12:56 p.m. HISTORY: Cough. FINDINGS: Comparison is made with the exam of 03/07/2018. The heart size is borderline. The aorta is tortuous. The lungs are expanded without focal areas of consolidation, pneumothoraces, aneudy pulmonary edema, or pleural effusions. IMPRESSION: No acute process. POS: C
[2018-12-18 13:56] LABS: #Basophils 0.1 thou/uL (0.0-0.2); #Eosinphils 0.2 thou/uL (0.0-0.7); #Lymphocytes 2.7 thou/uL (1.20-3.40); #Monocytes 0.5 thou/uL (0.11-0.59); %Basophils 1.8 % (0.0-1.0); %Eosinophils 3.7 % (0.0-10.0); %Monocytes 7.4 % (0.0-10.0); %Neutrophils 46.1 % (42.0-75.0); Hemoglobin 12.2 g/dL (12.0-16.0); Mean Corpuscular HGB CONC 32.2 g/dL (32.0-36.0); Mean Corpuscular Hemoglobin 29.9 pg (27.0-31.0); Mean Corpuscular Volume 92.8 fL (78.0-98.0); Mean Platelet Volume 7.9 fL (7.4-10.4); Platelet Count 217 thou/uL (130-400); RBC Distribution Width 12.9 % (11.5-14.5); White Blood Cell (WBC) Count 6.5 thou/uL (4.8-10.8)
[2018-12-18 14:35] LABS: ALT (SGPT) 10 U/L (8-55); AST (SGOT) 16 U/L (5-34); Albumin 3.9 g/dL (3.4-4.8); Alkaline Phosphatase 63 U/L (40-150); Anion Gap 11 mmol/L (10-20); BUN (Urea Nitrogen) 17 mg/dL (9.8-20.1); Bilirubin, Total 0.4 mg/dL (0.2-1.2); Calc. Creatinine Clearance 0 mL/min (70-130); Calcium 9.3 mg/dL (7.8-10.44); Carbon Dioxide 27 mmol/L (23-31); Chloride 104 mmol/L (98-107); Estimated GFR-MDRD 87; Globulin 3.8 g/dL (2.4-3.5); Glucose 86 mg/dL (83-110); Potassium 3.7 mmol/L (3.5-5.1); Protein, Total 7.7 g/dL (6.0-8.3); Sodium 138 mmol/L (136-145)
[2018-12-18] MEDS ORDERED: Aspirin Chewable 81 MG TAB ONE (18:10)
[2018-12-18 18:42] LABS: Troponin I Less than 0.010 ng/mL (< 0.028)
--- NOTE | 2018-12-18 18:48 | PDOC.FPRHP ---
- History of Present Illness Chief Complaint: back pain and SOB History of Present Illness: 73 yo female presents for evaluation of back pain with associated SOB and diaphoresis. Patient states she has felt SOB for the past week that has gotten progressively worse. She states the SOB is worse with exertion and worse lying flat. She usually sleeps using 2 pillows to prop her head up to help her breathing. She notes a dry cough associated with the SOB. She di endorse that occasionally she coughs up brownish phlegm. Denies fever/chills, nasal congestion or sore throat. The patient has also had a nagging back pain. She states the pain is in the mid upper back and rates it as an 8-9/10 at its worst. Does not radiate. Denies chest pain or palpitations, abdominal pain, headache, NVD, LE swelling. ED Course: asa 324 - Allergies/Adverse Reactions Allergies Allergy/AdvReac Type Severity Reaction Status Date / Time acetaminophen [From Tylenol] Allergy Verified 12/19/18 06:24 ibuprofen Allergy itch Verified 12/19/18 06:24 pregabalin [From Lyrica] Allergy Verified 12/19/18 06:24 - Home Medications Medication Instructions Recorded Confirmed Type Atenolol [Tenormin] 50 mg PO DAILY 03/07/18 12/18/18 History Calcium Carbonate/Vitamin D3 1 tablet PO DAILY 03/07/18 12/18/18 History [Calcium 500 + Vitamin D3 400] Hydrochlorothiazide 25 mg PO DAILY 03/07/18 12/18/18 History [place]-3 Fatty Acids/Fish Oil [Fish 1 cap PO DAILY 03/07/18 12/18/18 History Oil 1,000 mg Capsule] Pantoprazole [Protonix] 40 mg PO DAILY 03/07/18 12/18/18 History Verapamil HCl [Verapamil ER] 120 mg PO DAILY 03/07/18 12/19/18 History Aspirin Chewable [Aspirin Chewable 81 mg PO BID tab 03/22/18 12/18/18 Rx Tablet] Nitroglycerin [Nitrostat] 0.4 mg SL Q5MIN 12/18/18 12/18/18 History Baclofen [Lioresal] 10 mg PO BIDPRN PRN #10 tab 12/19/18 Rx - History PMHx: HTN, HLD, GERD, Left nerve damage PSHx: Hip replacement x 2, Knee replacement x2, Cholecystectomy, Hysterectomy FHx: Father: DM, HTN. Brother: Brain cancer 60s. Social: Tobacco use (35 years ago, social use), Denies alcohol and drug use. PCP: Dr. Mejia Allergies: Ibuprofen - itching - Review of Systems General: reports: fatigue. denies: fever/chills, weight/appetite/sleep changes , night sweats Eyes: denies: eye pain, vision changes ENT: reports: rhinorrhea. denies: nasal congestion Respiratory: reports: cough, congestion, shortness of breath, exercise intolerance Cardiovascular: denies: chest pain, palpitation, edema, paroxysmal nocturnal dyspnea, orthopnea Gastrointestinal: reports: nausea. denies: vomiting, constipation, abdominal pain Genitourinary: denies: incontinence, dysuria Skin: denies: rashes, lesions Musculoskeletal: reports: pain, arthritis/arthralgias. denies: tenderness, stiffness, swelling Neurological: reports: numbness. denies: syncope, seizure, weakness Psychological: denies: anxiety, depression - Vital signs BP: 142/90 HR: 63 RR: 16 Tmax: 98 Pox: 96% on RA Wt: 94.8kg - Physical Exam Constitutional: NAD, awake, alert and oriented, well developed HEENT: normocephalic and atraumatic, PERRLA, EOMI, conjunctiva clear, no scleral icterus, grossly normal vision, grossly normal hearing, normal nasal mucosa, MMM, oropharynx clear, good dention Neck: supple, FROM, trachea midline, no LAD, no JVD, no thyromegaly, no bruits Chest: no-tender to palpation, no lesions Heart: RRR, normal S1/S2, pulses present, no edema Lungs: CTAB, no respiratory distress, good air movement, no rales/rhonchi, no wheezing, no retractions Abdomen: soft, non-tender, bowel sounds present, no masses/distention, no hernias Musculoskeletal: normal structure, normal tone, ROM grossly normal -Musculoskeletal: TTP along trapezius muscle to back Neurological: no focal deficit, CN II-XII intact, normal sensation Skin: no rash/lesions, good turgor, capillary refill <2 seconds, no jaundice Heme/Lymphatic: no unusual bruising or bleeding, no purpura, no petechia, no LAD Psychiatric: normal mood and affect, good judgment and insight, intact recent and remote memory FMR H&P: Results - Labs Result Diagrams: 12/19/18 06:40 12/19/18 06:40 Lab results: WBC 6.5 thou/uL (4.8-10.8) 12/18/18 13:48 Hgb 12.2 g/dL (12.0-16.0) 12/18/18 13:48 Hct 38.0 % (36.0-47.0) 12/18/18 13:48 MCV 92.8 fL (78.0-98.0) 12/18/18 13:48 Plt Count 217 thou/uL (130-400) 12/18/18 13:48 Neutrophils % 46.1 % (42.0-75.0) 12/18/18 13:48 Sodium 138 mmol/L (136-145) 12/18/18 13:48 Potassium 3.7 mmol/L (3.5-5.1) 12/18/18 13:48 Chloride 104 mmol/L (98-107) 12/18/18 13:48 Carbon Dioxide 27 mmol/L (23-31) 12/18/18 13:48 BUN 17 mg/dL (9.8-20.1) 12/18/18 13:48 Creatinine 0.79 mg/dL (0.6-1.1) 12/18/18 13:48 Glucose 86 mg/dL (83-110) 12/18/18 13:48 Calcium 9.3 mg/dL (7.8-10.44) 12/18/18 13:48 Total Bilirubin 0.4 mg/dL (0.2-1.2) 12/18/18 13:48 AST 16 U/L (5-34) 12/18/18 13:48 ALT 10 U/L (8-55) 12/18/18 13:48 Alkaline Phosphatase 63 U/L (40-150) 12/18/18 13:48 B-Natriuretic Peptide 133.4 pg/mL (0-100) H 12/18/18 13:48 Serum Total Protein 7.7 g/dL (6.0-8.3) 12/18/18 13:48 Albumin 3.9 g/dL (3.4-4.8) 12/18/18 13:48 - Radiology Interpretation Chest x-ray Status: report reviewed by me (no acute process) FMR H&P: A/P - Problem List (1) Atypical chest pain Current Visit: Yes Status: Acute Code(s): R07.89 - OTHER CHEST PAIN (2) Essential hypertension Current Visit: No Status: Acute Code(s): I10 - ESSENTIAL (PRIMARY) HYPERTENSION (3) GERD (gastroesophageal reflux disease) Current Visit: No Status: Acute Code(s): K21.9 - GASTRO-ESOPHAGEAL REFLUX DISEASE WITHOUT ESOPHAGITIS (4) HLD (hyperlipidemia) Current Visit: No Status: Acute Code(s): E78.5 - HYPERLIPIDEMIA, UNSPECIFIED (5) Back pain Current Visit: Yes Status: Acute Code(s): M54.9 - DORSALGIA, UNSPECIFIED - Plan Atypical chest pain associated with SOB/diaphoresis - Will obtain NM stress, echo - EKG NSR at this time, trop neg x 3 - elevated BNP - 133, obtaining echo - Continue home ASA - Ddimer elevate, CTA neg for PE Back pain - No imaging needed at this time as no red flag symptoms - Will give baclofen to see if this relieves pain - Ruling out any cardiac causes that could be referring to back HTN - aware, will continue home meds - continue to monitor BP GERD - aware, continue home meds DISPO: admit to tele obs CODE: FULL Diet: Case discussed with Dr. Arauz FMR H&P: Upper Level - Pertinent history 73F with history of HTN and heart murmur, presents for evaluation of upper back pain. However as her associated symptom includes SOB and arm pain, there is concern she is having atypical chest pain, heart score of 5. States her pain is exacerbated by deep breath and by laying flat. It is not relieved by anything. It has been intermittent since it started. State dyspnea is worsening since it started. Supposedly she had subjective fevers at home. In ER, d-dimer was elevated. CTA done was negative. She received 324 of aspirin. - Pertinent findings Vitals: BP 135/71, Pulse 69, R 16, Temp 98 Gen: Alert, oriented HEENT: Hearing, vision grossly intact CV: RRR with no m/g/r. No pain on palpation of chest wall. No heaves or lifts Resp: CTA bilat, no retraction or labored breathing MSK: Pain on palpation of trapezius, no induration or erythema noted Ext: No pitting edema - Plan Date/Time: 12/18/181844 1. ACS rule out - Heart score 5, neg EKG and trop. Symptom has resolved at this time - Plan, stess test tomorrow 2. Indeterminate BNP - Possible CHF - No evident on exam or imaging, [id number] patient is subjectively symptomatic - Obtain echo. 3. HTN - Continue home HCTZ, hold atenolol and verapamil. 4. GERD: - Continue pantoprazole. I, [Óscar Humphries], have evaluated this patient and agree with findings/plan as outlined by internet marketing director resident. Pertinent changes/additions are listed here. Addendum - Attending - Attending Attestation Date/Time: 12/18/181912 I personally evaluated the patient and discussed the management with Dr. Siddiqui and Dr. Humphries I agree with the History, Examination, Assessment and Plan documented above with any addition or exceptions noted below. 73 yo female with hx of HTN, OA, HLD presents for evaluation of worsening back pain and SOB. Patient reports a weeks worth of symptoms which have been progressive. SOB associated with activity and lying flat. Notes 2 pillow orthopnea. Associated with productive cough with brownish sputum. No other symptoms. Back pain located in upper back, between shoulder bladders. Radiates to back of neck. Worse with palpation. Rates 8 to 10/10. VS, labs, and imaging reviewed. NAD. RRR. no murmurs CTAB. no w/c/r NT/ND. BS present Trapezius muscle tender to palpation Dyspnea in postmenopausal female associated with back pain: Concern for ACS. Trend trop. Heart score 4 with 12 to 65% risk for major acute cardiac event. Continous tele monitoring with stress in AM. Maximize preventative therapies to decrease risk. JACKSON, orthopnea: Add BNP. ECHO in AM. Adjust home meds as needed. Jeronimo
--- NOTE | 2018-12-18 18:55 | CT ---
CT ANGIO OF CHEST PERFORMED WITH INTRAVENOUS CONTRAST ENHANCEMENT AND 3D RECONSTRUCTIONS: 12/18/18 HISTORY: Cough, congestion, dyspnea. The lungs are clear of any infiltrative process. There is some minimal linear scarring in the lung ba ses. No significant mediastinal or hilar adenopathy. There is good pulmonary artery opacification obtained. There is no CT evidence for pulmonary embolus. The visualized liver parenchyma shows no focal findings. The gallbladder has been removed. Right and left adrenal glands are normal. There are arthritic changes of the spine and scoliosis. IMPRESSION: No CT evidence for pulmonary embolus. POS: [facility]
[2018-12-18] MEDS ORDERED: Ondansetron PF 4 MG/2 ML Vial IVP PRN (19:54)
[2018-12-18] MEDS ORDERED: Ondansetron ODT 4 MG TAB SL PRN (19:54)
[2018-12-18 20:23] VITALS: BMI 34.5
[2018-12-18 21:57] LABS: Troponin I Less than 0.010 ng/mL (< 0.028)
[2018-12-18] MEDS ORDERED: Baclofen 10 MG TAB PO PRN (22:24)
[2018-12-18] MEDS ORDERED: Nitroglycerin 0.4 MG TAB (25 Tab Bottle) SL SCH (22:30)
[2018-12-19] MEDS ORDERED: Lactated Ringer's 1,000 ML IV SCH (00:30)
--- NOTE | 2018-12-19 06:08 | PDOC.FM ---
- Subjective Subjective: 73 yo female seen at bedside this AM. Patient states that she never really had any chest pain, but the back pain is the thing that was bothering her the most. She states that her pain is better, but still not gone. She is eager to find out the results of her upcoming tests. No other acute events. - Objective Vital Signs & Weight: Vital Signs (12 hours) Temp Pulse Resp BP Pulse Ox 12/19/18 04:00 98.4 F 65 16 110/57 L 96 12/18/18 19:45 98.9 F 66 16 150/73 H 98 Weight Weight 97.205 kg I&O: 12/17/18 12/18/18 12/19/18 06:59 06:59 06:59 Intake Total 300 Output Total 800 Balance -500 Result Diagrams: 12/19/18 06:40 12/19/18 06:40 Phys Exam - Physical Examination Constitutional: NAD HEENT: moist MMs Respiratory: no wheezing, clear to auscultation bilateral Cardiovascular: RRR, no significant murmur Gastrointestinal: soft, non-tender, no distention, positive bowel sounds Musculoskeletal: no edema, pulses present Neurological: non-focal, normal sensation, moves all 4 limbs Psychiatric: normal affect, A&O x 3 Skin: no rash Dx/Plan (1) Atypical chest pain Code(s): R07.89 - OTHER CHEST PAIN Status: Acute (2) Back pain Code(s): M54.9 - DORSALGIA, UNSPECIFIED Status: Acute (3) Essential hypertension Code(s): I10 - ESSENTIAL (PRIMARY) HYPERTENSION Status: Acute (4) GERD (gastroesophageal reflux disease) Code(s): K21.9 - GASTRO-ESOPHAGEAL REFLUX DISEASE WITHOUT ESOPHAGITIS Status: Acute - Plan Plan: Atypical chest pain associated with SOB/diaphoresis - Will obtain NM stress, echo pending this AM. - Trop neg x 3 - elevated BNP - 133 - Continue home ASA - Ddimer elevate, CTA neg for PE Back pain - Will give baclofen to see if this relieves pain - Ruling out any cardiac causes that could be referring to back - Consider outpatient follow up if Cardiac workup negative. HTN - aware, will continue home meds - continue to monitor BP GERD - aware, continue home meds Disposition: Stable, will await results of testing today. Discharge planning will be completed when more results available. Addendum - Attending - Attending Attestation Date/Time: 12/19/18 0845 I personally evaluated the patient and discussed the management with Dr. Shepherd I agree with the History, Examination, Assessment and Plan documented above with any addition or exceptions noted below.
[2018-12-19 07:21] LABS: #Basophils 0.1 thou/uL (0.0-0.2); #Eosinphils 0.3 thou/uL (0.0-0.7); #Monocytes 0.5 thou/uL (0.11-0.59); #Neutrophils 2.7 thou/uL (1.40-6.50); %Basophils 1.4 % (0.0-1.0); %Eosinophils 5.6 % (0.0-10.0); %Lymphocytes 35.8 % (21.0-51.0); %Monocytes 8.5 % (0.0-10.0); %Neutrophils 48.7 % (42.0-75.0); Hemoglobin 12.4 g/dL (12.0-16.0); Mean Corpuscular Hemoglobin 30.7 pg (27.0-31.0); Mean Corpuscular Volume 92.9 fL (78.0-98.0); Mean Platelet Volume 8.4 fL (7.4-10.4); Platelet Count 206 thou/uL (130-400); Red Blood Cell (RBC) Count 4.04 mill/uL (4.20-5.40); White Blood Cell (WBC) Count 5.6 thou/uL (4.8-10.8)
[2018-12-19 07:40] LABS: Anion Gap 14 mmol/L (10-20); BUN (Urea Nitrogen) 16 mg/dL (9.8-20.1); Calc. Creatinine Clearance 105 mL/min (70-130); Calcium 9.5 mg/dL (7.8-10.44); Carbon Dioxide 23 mmol/L (23-31); Chloride 105 mmol/L (98-107); Estimated GFR-MDRD Greater than 90; Glucose 84 mg/dL (83-110); Potassium 3.8 mmol/L (3.5-5.1); Sodium 138 mmol/L (136-145)
[2018-12-19] MEDS ORDERED: Verapamil SR 120 MG TAB PO SCH ×2 (09:00→21:00)
[2018-12-19] MEDS ORDERED: ADENOSINE 60 MG/20 ML VIAL ONE (09:31)
[2018-12-19] MEDS: Aspirin Chewable 81 MG TAB PO SCH ×2 (13:30→20:51)
[2018-12-19] MEDS: Hydrochlorothiazide 25 MG TAB PO SCH (13:30)
[2018-12-19] MEDS: Calcium Carbonate + Vit D 1 TAB PO SCH (13:33)
[2018-12-19] MEDS: Fish Oil 1,000 MG CAP PO SCH (13:33)
[2018-12-19] MEDS: Enoxaparin Sodium 40 MG/0.4 ML SYRINGE SC SCH (13:33)
--- NOTE | 2018-12-19 15:19 | PDOC.EVN ---
Event Note - Event Note Event Note: The Patient's chart was reviewed for the purpose of Utilization Management. The patient's acuity of care does not meet the level of inpatient status. Therefore under the Medicare Provision Code 44, the patient's status will be changed to Observation. The patient's Attending Physician is in agreement.
--- NOTE | 2018-12-20 07:09 | PDOC.FM ---
- Subjective Subjective: Pleasant 73 yo female seen at bedside this AM. Patient is ready to go home. She has no new questions or complaints overnight. - Objective Vital Signs & Weight: Vital Signs (12 hours) Temp Pulse Resp BP BP Pulse Ox 12/20/18 03:30 97.6 F 77 18 111/57 L 96 12/19/18 20:50 97.8 F 73 18 122/64 122/64 99 Weight Weight 97.205 kg I&O: 12/19/18 12/20/18 12/21/18 06:59 06:59 06:59 Intake Total 300 Output Total 800 Balance -500 Result Diagrams: 12/19/18 06:40 12/19/18 06:40 Phys Exam - Physical Examination Constitutional: NAD HEENT: PERRLA, moist MMs Neck: no JVD Respiratory: no wheezing, clear to auscultation bilateral Cardiovascular: RRR, no significant murmur Gastrointestinal: soft, non-tender, no distention, positive bowel sounds Musculoskeletal: no edema, pulses present Neurological: non-focal, normal sensation, moves all 4 limbs Psychiatric: normal affect, A&O x 3 Skin: no rash Dx/Plan (1) Atypical chest pain Code(s): R07.89 - OTHER CHEST PAIN Status: Acute (2) Back pain Code(s): M54.9 - DORSALGIA, UNSPECIFIED Status: Acute (3) Essential hypertension Code(s): I10 - ESSENTIAL (PRIMARY) HYPERTENSION Status: Acute (4) GERD (gastroesophageal reflux disease) Code(s): K21.9 - GASTRO-ESOPHAGEAL REFLUX DISEASE WITHOUT ESOPHAGITIS Status: Acute - Plan Plan: Atypical chest pain associated with SOB/diaphoresis, resolved - Resting Stress portion completed today. - ECHO report followed up as outpatient. - Trop neg x 3 - elevated BNP - 133 - Continue home ASA - Ddimer elevate, CTA neg for PE Back pain - Will give baclofen to see if this relieves pain - Ruling out any cardiac causes that could be referring to back - Consider outpatient follow up if Cardiac workup negative. HTN - aware, will continue home meds - continue to monitor BP GERD - aware, continue home meds Disposition: Stable, if stress test negative patient will be discharged today. Addendum - Attending - Attending Attestation Date/Time: 12/20/18 1044 I personally evaluated the patient and discussed the management with Dr. Shepherd I agree with the History, Examination, Assessment and Plan documented above with any addition or exceptions noted below. Patient stable for dismissal r/o for ACS.
[2018-12-20 09:11] VITALS: BP 136/77; TEMP 98.1
[2018-12-20] MEDS: Calcium Carbonate + Vit D 1 TAB PO SCH (09:12)
[2018-12-20] MEDS: Aspirin Chewable 81 MG TAB PO SCH (09:12)
[2018-12-20] MEDS: Enoxaparin Sodium 40 MG/0.4 ML SYRINGE SC SCH (09:12)
[2018-12-20] MEDS: Fish Oil 1,000 MG CAP PO SCH (09:12)
[2018-12-20] MEDS: Hydrochlorothiazide 25 MG TAB PO SCH (09:12)
--- NOTE | 2018-12-20 11:44 | NM ---
NUCLEAR MEDICINE CARDIAC MYOCARDIAL PERFUSION SPECT EJECTION FRACTION STUDY WALL MOTION CINE: 12/19/2018 HISTORY: A 73-year-old female smoker with hypertension and dyslipidemia presents with chest pain. TECHNIQUE: Number of days: Two. Rest study: Tc99m sestamibi (Cardiolite) dose: 27.0 mCi Pharmacologic stress: adenosine dose: 54.4 mg Stress study: Tc99m sestamibi (Cardiolite) dose: 33.0 mCi FINDINGS: CARDIAC (MYOCARDIAL PERFUSION) SPECT There are no reversible myocardial perfusion defects. EJECTION FRACTION STUDY EF = 56% WALL MOTION CINE Normal. IMPRESSION: No evidence of reversible ischemia. SEE Abad POS: [facility]
--- NOTE | 2018-12-20 15:56 | DIS ---
DATE OF ADMISSION: 12/18/2018 DATE OF DISCHARGE: 12/20/2018 RESIDENT: Dr. Shepherd. ADMITTING ATTENDING: Dr. Arauz. CONSULTS: Usic-yb-Feazcep. PROCEDURES: 1. On 12/18/2018, the patient underwent a chest x-ray that showed no acute process. 2. On 12/18/2018, the patient underwent a chest thorax CTA that showed no CT evidence of pulmonary embolism. 3. On 12/19/2018 and 12/20/2018, the patient underwent a 2-day stress nuclear medicine test that showed no evidence of reversible ischemia. 4. The patient also underwent on 12/19/2018, an echocardiogram with results pending at this time. PRIMARY DIAGNOSES: 1. Atypical chest pain. 2. Back pain. 3. Essential hypertension. 4. Gastroesophageal reflux disease. DISCHARGE MEDICATIONS: 1. Calcium carbonate vitamin D3 one tablet p.o. daily. 2. Fish oil 1000 mg p.o. daily. 3. Verapamil 120 mg p.o. daily. 4. Protonix 40 mg p.o. daily. 5. Hydrochlorothiazide 25 mg p.o. daily. 6. Atenolol 50 mg p.o. daily. 7. Aspirin 81 mg p.o. b.i.d. 8. Nitrostat 0.4 mg sublingual every 5 minutes. 9. Baclofen 10 mg p.o. b.i.d. p.r.n. HISTORY OF PRESENT ILLNESS AND HOSPITAL COURSE: The patient is a 73-year-old female who presents for evaluation of back pain with associated shortness of breath and diaphoresis. The patient states she felt short of breath for the past week and it has got progressively worse. The patient states that the shortness of breath is worse with exertion and worse with lying flat. The patient also notes a dry cough associated with the shortness of breath. The patient also had a nagging back pain. She states the pain is in her mid upper back, rates it as an 8/10 at its worst. Pain does not radiate. She denied any chest pains or palpitations, abdominal pain, headache, nausea, vomiting, diarrhea or lower extremity swelling. During this hospitalization, the patient was risk stratified with normal lab values of troponins less than 0.01 x3. She does have a slightly elevated BNP of 133. All other chemistry studies were negative. Her D-dimer was elevated at 1.62, but was ruled out for PE on a CTA done in the emergency room. The patient then underwent a cardiac stress test that needed to have 2 days to fully evaluate her cardiac function and that was deemed normal on nuclear medicine stress testing. The patient does have an echocardiogram that will be followed up with us as an outpatient as it was completed, but the read was not available at time of discharge. The patient is otherwise is normotensive, was afebrile and also had a normal pulse during her hospitalization. The patient was adamant that her pain had been relieved with muscle relaxant that was given and she otherwise made a full recovery. No other complication during this hospitalization and she was discharged in appropriate condition. DISPOSITION: Stable. DISCHARGE INSTRUCTIONS: 1. Location: She will be discharged to home under the care of herself and her family. 2. Diet: Heart healthy diet with no restrictions. 3. Activity: Will be as tolerated with no restrictions. 4. Followup: With her primary care provider, Dr. Liz Mejia at [facility] in 3 to 7 days to further discuss her past hospitalization. Job ID: [id number]
--- NOTE | 2018-12-21 15:34 | EKG ---
Test Reason : Blood Pressure : / mmHG Vent. Rate : 068 BPM Atrial Rate : 068 BPM P-R Int : 172 ms QRS Dur : 092 ms QT Int : 416 ms P-R-T Axes : 060 028 033 degrees QTc Int : 442 ms Normal sinus rhythm Normal ECG Confirmed by KIM AUSTIN M.D. ([id number]), design editor MOHINI STEVENSON ([id number]) on 12/21/2018 3:34:24 PM Referred By: Confirmed By:KIM AUSTIN M.D.
--- NOTE | 2018-12-26 09:27 | STRESS ---
Acquisition Time: 2018-12-19 10:24:17 Total Exercise Time: 00:04:00 Test Indications: CHEST PAIN Medications: Protocol: ADENOSINE Max HR: 091 BPM 61% of Pred: 148 BPM Max BP: 126/072 mmHG Max Work Load: 1.0 METS RESTING ECG: NORMAL SINUS RHYTHM AT 78 BPM WITH POOR R-WAVE PROGRESSION SYMPTOMS: DYSPNEA NORMAL BP RESPONSE ECTOPY: NONE ECG STRESS: NO SIGNIFICANT CHANGES INTERPRETATION: AWAIT NUCLEAR IMAGES FOR DEFINITIVE DIAGNOSIS Confirmed by JESS MENA ([id number]), non linear editor YASSINE THAYER ([id number]) on 12/26/2018 9:26:23 AM Referred By: Kelsie GARIBAY Confirmed By:JESS MENA
== END 2018-12-20 11:13 | disposition home or self-care (01) ==
LOC: ERS 12:50 → INTOOBSV 19:44 → 2NO 19:44
PROVIDERS: ADMIT Student in an Organized Health Care Education/Training Program; ATTEND Student in an Organized Health Care Education/Training Program
DX: R07.89 Other chest pain (principal); R06.02 Shortness of breath; M54.9 Dorsalgia, unspecified; I10 Essential (primary) hypertension; K21.9 Gastro-esophageal reflux disease without esophagitis; E78.5 Hyperlipidemia, unspecified; Z87.891 Personal history of nicotine dependence; Z79.899 Other long term (current) drug therapy; Z88.8 Allergy status to other drugs, medicaments and biological substances
CPT/HCPCS: 71045; 71275; 78452; 80048; 80053; 83880; 84484 ×2; 85025 ×2; 85379; 93005; 93017; 93306; 94760; 96372 ×2; 97139 ×2; 99285; A9500; G0378; 36415; J0153; J1650; Q9966

== ENCOUNTER 2019-02-13 04:01 | Emergency (ER) | payer MEDICARE ==
[2019-02-13] MEDS ORDERED: HYDROcodone/Acetaminophen 10/325 mg Tablet ONE (05:56)
--- NOTE | 2019-02-13 07:51 | RAD ---
FRONTAL VIEW PELVIS: Indication: Pain. Left sided. Comparison: Radiographs 05-31-16. FINDINGS: Bilateral prosthetic hip joints are in place. No obvious acute hardware complication. Stable osseous fragmentation is seen about the lateral aspect of the left hip prosthesis. Prominent degenerative jaycob nge of the imaged lower lumbar spine is noted. There is degenerative change at each sacroiliac joint and involving the symphysis pubis. IMPRESSION: No obvious acute fracture of the post-operative hip. POS: [facility]
--- NOTE | 2019-02-13 07:51 | RAD ---
LEFT HIP 2 VIEWS: Date: 02/13/19 INDICATION: Progressive pain. Reference made to 05/31/16 radiograph series. FINDINGS: There is postoperative change of the left hip with redemonstration of heterotopic ossific density adj acent to the lateral aspect of the proximal prosthesis. There is no obvious acute hardware complicati on. IMPRESSION: No definite acute osseous abnormality of the postoperative left hip. POS: [facility]
--- NOTE | 2019-02-13 07:52 | ULT ---
ULTRASOUND WITH DOPPLER DUPLEX VENOUS LOWER EXTREMITY LEFT: CPT: 40745 ICD-10-PCS: B54D INDICATION: Pain. TECHNIQUE: Color flow Doppler, spectral waveform analysis of pulsed Doppler, and mandujano-scale imaging with dale yaw and augmentation, were used to evaluate the left common femoral, femoral, popliteal, posterior t ibial, and superficial femoral, veins; and the proximal portions of the profunda femoral and greater saphenous, veins. FINDINGS: There is appropriate compressibility and flow within the imaged deep vein system of the left lower ex tremity. IMPRESSION: No deep venous thrombosis. POS: [facility]
--- NOTE | 2019-02-13 08:17 | CT ---
CT PELVIS NONCONTRAST: Date: 02/13/19 INDICATION: Progressive left hip pain. FINDINGS: There is extensive streak artifact from indwelling bilateral hip hardware. There is osseous fragmenta tion about the lateral aspect of the left hip prosthesis, which has been demonstrated on prior radiog raphs. There is also a smaller region of anteriorly located heterotopic ossification with corticated appearing/sclerotic margins, although partially obscured by streak artifact. No definite acute hardwa re complication is identified within limitations. The distalmost aspect of the left femoral prostheti c component is not visualized for comment. 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 Intrapelvic contents are not reliably visualized due to the degree of beam hardening/s treak artifact. IMPRESSION: No definite acute abnormality of the postoperative pelvis. Exam is markedly limited due to the degree of streak artifact. POS: [facility]
== END 2019-02-13 06:58 | disposition home or self-care (01) ==
LOC: ERS 04:01
DX: M25.552 Pain in left hip (principal); I10 Essential (primary) hypertension; Z79.82 Long term (current) use of aspirin; Z79.899 Other long term (current) drug therapy
CPT/HCPCS: 72170; 72192

== ENCOUNTER 2019-03-04 01:56 | Outpatient (CLI) | payer MEDICARE ==
--- NOTE | 2019-03-04 14:19 | RAD ---
PA AND LATERAL VIEWS CHEST: 03/04/19 HISTORY: Preoperative evaluation. FINDINGS: Comparison is made with exam of 12/18/18. The heart size is normal. The aorta is tortuous. The lungs are well expanded without lobar consolidat ion, pneumothoraces, aneudy pulmonary edema or pleural effusions. There are degenerative changes are t he spine. IMPRESSION: No acute process. POS: [facility]
[2019-03-04 14:42] LABS: #Eosinphils 0.2 thou/uL (0.0-0.7); #Lymphocytes 2.5 thou/uL (1.20-3.40); #Monocytes 0.5 thou/uL (0.11-0.59); #Neutrophils 3.2 thou/uL (1.40-6.50); %Basophils 0.3 % (0.0-1.0); %Eosinophils 3.3 % (0.0-10.0); %Lymphocytes 38.4 % (21.0-51.0); %Monocytes 7.8 % (0.0-10.0); %Neutrophils 50.2 % (42.0-75.0); Bilirubin Negative (Negative); Blood, Urine Negative (Negative); Clarity CLEAR (Clear); Glucose, Urine (Dipstick) Negative (Negative); Hemoglobin 13.3 g/dL (12.0-16.0); Leukocyte Negative (Negative); Mean Corpuscular HGB CONC 33.3 g/dL (32.0-36.0); Mean Corpuscular Hemoglobin 30.8 pg (27.0-31.0); Mean Corpuscular Volume 92.7 fL (78.0-98.0); Mean Platelet Volume 8.7 fL (7.4-10.4); Nitrite Negative (Negative); Platelet Count 211 thou/uL (130-400); Protein, Urine (Dipstick) Negative (Neg-Trace); RBC Distribution Width 12.8 % (11.5-14.5); Red Blood Cell (RBC) Count 4.31 mill/uL (4.20-5.40); Specific Gravity, Urine 1.006 (1.002-1.036); Urobilinogen 0.2 mg/dL (0.2-1.0); White Blood Cell (WBC) Count 6.4 thou/uL (4.8-10.8)
[2019-03-04 14:43] LABS: Bacteria/HPF None Seen HPF (None Seen); Hyaline Casts/LPF 0-3 HYALINE CAST LPF (0-3 Hyaline); RBC/HPF 0-3 HPF (0-3); Squamous Epithelial None Seen HPF (0-3); WBC/HPF None Seen HPF (0-3)
[2019-03-04 14:47] LABS: Prothrombin Time 12.8 SEC (12.0-14.7)
[2019-03-04 14:59] LABS: Anion Gap 13 mmol/L (10-20); BUN (Urea Nitrogen) 14 mg/dL (9.8-20.1); Calc. Creatinine Clearance 0 mL/min (70-130); Calcium 9.7 mg/dL (7.8-10.44); Carbon Dioxide 26 mmol/L (23-31); Chloride 103 mmol/L (98-107); Estimated GFR-MDRD 87; Glucose 82 mg/dL (83-110); Potassium 4.1 mmol/L (3.5-5.1); Sodium 138 mmol/L (136-145)
== END 2019-03-04 01:57 | disposition home or self-care (01) ==
LOC: LABBT 01:56
PROVIDERS: ATTEND Orthopaedic Surgery
DX: Z01.818 Encounter for other preprocedural examination (principal); T84.093A Other mechanical complication of internal left knee prosthesis, initial encounter
CPT/HCPCS: 71046; 80048; 81001; 85025; 85610; 86850; 86870; 86900; 86901; 87081; 93005; 93010

== ENCOUNTER 2019-03-04 13:30 | Inpatient (IN) | payer MEDICARE ==
[2019-03-04 13:26] VITALS: BMI 39.6
[2019-03-11] MEDS ORDERED: Tranexamic Acid 1,000 MG/10 ML VIAL ONE (08:10)
[2019-03-11] MEDS ORDERED: Sodium Chloride 0.9% 100 ML ONE (08:10)
[2019-03-11] MEDS ORDERED: Vancomycin HCl 1.5 GM in Sodium Chloride 0.9% 250 ML 300 ML IVPB SCH (08:15)
[2019-03-11] MEDS ORDERED: Fentanyl 100 MCG/2 ML VIAL ONE ×2 (08:17→15:06)
[2019-03-11] MEDS ORDERED: Midazolam HCl 2 mg/2 ml Vial ONE (08:17)
[2019-03-11] MEDS ORDERED: Ropivacaine 0.5% HCl/PF (150 MG/30 ML VIAL) ONE (10:38)
[2019-03-11] MEDS ORDERED: Glycopyrrolate 0.2 MG/ML 5 ML SYRINGE ONE (10:59)
[2019-03-11] MEDS ORDERED: Ondansetron PF 4 MG/2 ML Vial ONE (10:59)
[2019-03-11] MEDS ORDERED: Phenylephrine HCL 10 MG/ML VIAL ONE (10:59)
[2019-03-11] MEDS ORDERED: PROPOFOL 200 MG/20 ML VIAL ONE (10:59)
[2019-03-11] MEDS ORDERED: Lidocaine 1% PF 5 ML VIAL ONE (10:59)
[2019-03-11] MEDS ORDERED: Rocuronium Bromide 10 MG/ML (10ML VIAL) ONE (10:59)
[2019-03-11] MEDS ORDERED: diphenhydrAMINE 25 MG CAP PO PRN ×2 (11:07→15:00)
[2019-03-11] MEDS ORDERED: Promethazine HCl 25 MG/ML VIAL IM PRN ×5 (11:07→15:00)
[2019-03-11] MEDS ORDERED: HYDROcodone/Acetaminophen 10/325 mg Tablet PO PRN ×4 (11:07→11:24)
[2019-03-11] MEDS ORDERED: Zolpidem Tartrate 5 MG TAB PO PRN ×3 (11:07→15:00)
[2019-03-11] MEDS ORDERED: Acetaminophen 325 MG TAB PO PRN (11:07)
[2019-03-11] MEDS ORDERED: Ondansetron PF 4 MG/2 ML Vial IVP PRN ×3 (11:07→15:00)
[2019-03-11] MEDS ORDERED: traMADol HCl 50 MG TAB PO PRN ×2 (11:24)
[2019-03-11] MEDS ORDERED: Fentanyl 100 MCG/2 ML VIAL IV PRN (11:24)
[2019-03-11] MEDS ORDERED: Ropivacaine HCl/PF 250 ML in Premix Bag 1 BAG NERVE BLCK SCH (11:24)
[2019-03-11] MEDS ORDERED: Ondansetron HCl/PF 4 MG/2 ML Vial IVP PRN ×2 (13:05→13:06)
[2019-03-11] MEDS ORDERED: Promethazine HCl 25 MG/ML VIAL SLOW IVP PRN ×2 (13:05→13:06)
[2019-03-11] MEDS ORDERED: PACU-Morphine 4MG/ML VIAL SLOW IVP PRN (13:06)
[2019-03-11] MEDS ORDERED: Ketorolac Tromethamine 30 MG/ML VIAL IVP SCH (14:00)
[2019-03-11] MEDS ORDERED: diphenhydrAMINE 50 MG/ML VIAL IM/IV PRN (15:00)
[2019-03-11] MEDS ORDERED: Naloxone HCl 0.4 mg/ml Vial IV PRN (15:00)
--- NOTE | 2019-03-11 15:36 | RAD ---
TWO VIEWS OF THE LEFT KNEE: 03/11/19 HISTORY: Evaluate knee following arthroplasty. FINDINGS: There is postoperative gas and fluid adjacent to the distal left femur consistent with recent surgery . There is a total knee arthroplasty on the left. There is no evidence for hardware failure, acute fr acture, or evidence of dislocation. IMPRESSION: Radiographic evidence of recent left total knee arthroplasty. POS: [facility]
[2019-03-11] MEDS: Sodium Chloride 0.9% 1,000 ML IV SCH ×2 (16:31→22:39)
[2019-03-11] MEDS: CEFAZOLIN 2 GM in Premix Bag 1 BAG IVPB SCH ×2 (17:30→23:17)
[2019-03-11] MEDS: Aspirin Chewable 81 MG TAB PO SCH (20:03)
[2019-03-11] MEDS: Verapamil SR 120 MG TAB PO SCH (20:10)
[2019-03-11] MEDS ORDERED: Aspirin 81 mg Enteric Coated Tablet PO SCH (21:00)
--- NOTE | 2019-03-11 21:06 | OP ---
DATE OF PROCEDURE: 03/11/2019 This is Neftali Garcia PA-C dictating a report for Simone Ahn MD. 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 PROCEDURE PERFORMED: 1. Excisional arthroplasty of failed total knee arthroplasty. 2. Revision left total knee arthroplasty. SURGEON: Simone Ahn MD. CONFERENCE SERVICES DIRECTOR: Neftali Garcia PA-C. ANESTHESIA: General via endotracheal tube augmented with an indwelling adductor canal block. COMPONENTS USED: Skyengs triathlon size 4 total stabilized cemented femoral component with a 17 mm fluted stem, 100 mm length, distal augments to include a 5 mm posterior and 5 mm distal, both medial and lateral with a triathlon TS size 4 cemented universal tibial base plate with a 16 mm size 4 polyethylene total stabilize fixed bearing insert. The patella was not addressed due to loosening of prior patellar button and concerns for fracture. TOURNIQUET TIME: 97 minutes. FINDINGS: Aseptic loosening of both the femoral and tibial base plate, it was a DePuy Sigma cemented posterior stabilized knee with hyperextension. Changes in synovium consistent with macrophage action and chronic instability. Polyethylene was not worn, but instability was noted on preoperative exam and loosening was noted at surgery with loss of bonding between the cement and components. DRAINS: None. SPECIMENS: Frozen sections were sent for microscopy intraoperatively. INPUT AND OUTPUT: Input was 1500 of lactated Ringer's and urine output was 700 mL clear yellow urine. ESTIMATED BLOOD LOSS: 250 in total. COMPLICATIONS: None. COUNTS: Correct. INDICATION FOR SURGERY: Kim is a 74-year-old female, who had a left total knee arthroplasty performed approximately 12 years ago. She has had instability and hyperextension since surgery and over the last year or 2, she has gotten progressively worse. Plain radiographs demonstrated a little bit of varus angulation on the tibial implant. Therefore, the patient elected to proceed with revision total knee arthroplasty as definitive treatment of her pain, instability, and inability to ambulate great distances. DESCRIPTION OF PROCEDURE: After informed consent was obtained, the patient was taken to the operative suite. General anesthesia was induced and general endotracheal tube was placed and secured. The patient received preoperative antibiotics. She was positioned appropriately on the operating table. A well-padded tourniquet was placed on the proximal thigh, and then the extremity was prepped and draped in usual sterile fashion. Prior to exsanguination, a time- out was called and all members of Surgical Team agreed upon site, surgeon, and patient. Limb was exsanguinated. It was then placed in a flexed position and a midline incision was made directly over the patient's old incision. Subcutaneous layers were dissected with Bovie electrocautery and bleeding was controlled. The median parapatellar arthrotomy was then carried down to the joint and the clear yellow synovial fluid was encountered. We then performed subtotal synovectomy and removal of scar tissue for access to the implants. Oscillating saw was used to undermine the femoral cement mantle and osteotomes were used as well. The femoral component came off relatively easily, taking with it some ex-cavitated bone noted at the posterior condyles and posterior chamfers. No fractures were identified. Tibial base plate was also found to be loose. It was easily removed with few taps from the mallet and osteotome. The mantle appeared to be intact and there appeared to be a failure of bonding between the cement mantle and the tibial implant. Once both femoral and tibial implants were removed, attention was then turned to completion of subtotal synovectomy. The attention was turned to the tibial interface. Intramedullary cutting guide was placed, pin was placed, and oscillating saw was then used to resect approximately 2 mm of tibia, taking with it the cement mantle in total. Curettage was used to remove the remaining mantle found in the tibia. The tibia was then copiously irrigated and washed. Attention was turned to femoral preparation. The four-in-one cutting guide was then placed using intramedullary placement. We resected approximately 5 mm off the distal femur and posterior condyles. The stemmed femoral trial was then placed and series of spacers were used up to 16 mm, which provided us with the most stable platform, stable to varus and valgus stressing and drawer both anterior-posterior. The bone was then copiously irrigated with pulsatile lavage of about 3 L. Curettage was used to remove the remaining bone cement for final preparation of implantation. Methylmethacrylate was then prepared, placed on tibia. Tibial base plate was firmly squarely malleted into place, as was the femoral component, and then the polyethylene spacer was then malleted squarely and firmly into place. The knee was then taken through several range of motion exercises to include flexion-extension, drawer, and she was stable to varus, valgus stressing at all points of movement. No drawer or pivot shifts identified. The cement was allowed to cure, and copious irrigation was carried out, and primary closure was accomplished with interrupted #2 Vicryl oversewn with #2 Quill stitch. Subcutaneous layer was closed with 0 Quill stitch, and the skin was reapproximated with 3-0 Prolene stitch in a running horizontal mattress. Sterile dressing was applied. Procedure was terminated without complication. The patient was extubated in the operating room and taken to recovery room in stable condition. Job ID: [id number] [facility]
[2019-03-12] MEDS: Ropivacaine HCl/PF 250 ML in Premix Bag 1 BAG NERVE BLCK SCH (02:51)
--- NOTE | 2019-03-12 04:10 | CON ---
DATE OF CONSULTATION: 03/11/2019 TIME: 2200 hours. CODE STATUS: Full. PRIMARY CARE PHYSICIAN: Liz Mejia MD RESIDENT: Jared Gavin MD HISTORIAN: Patient and daughter. CHIEF COMPLAINT: Status post left knee arthroplasty revision. HISTORY OF PRESENT ILLNESS: This is a pleasant 74-year-old -Martiniquais female, here for revision of her left knee replacement. The patient had this placed approximately 12 years ago, has been experiencing hyperextension instability for the last 1 to 2 years. She has now undergone a successful revision with no complications by orthopedic surgeon. The Family Medicine team has been consulted for medical management of her other comorbidities. At this time, the patient endorses that her pain is well controlled. She is stable on 3 medications for her hypertension as well as one medication for reflux. She has no concerns at this time. PAST MEDICAL HISTORY: 1. Hypertension. 2. Hyperlipidemia. 3. GERD. PAST SURGICAL HISTORY: 1. Right hip arthroplasty x2. 2. Bilateral knee arthroplasty. 3. Cholecystectomy. 4. Hysterectomy. ALLERGIES: IBUPROFEN. MEDICATIONS: 1. Atenolol 50 mg p.o. daily. 2. Hydrochlorothiazide 25 mg p.o. daily. 3. Verapamil ER 120 mg p.o. daily. 4. Aspirin 81 mg daily. 5. Fish oil 1000 mg daily. 6. Pantoprazole 40 mg daily. FAMILY HISTORY: Significant for father with diabetes and hypertension, and a brother with brain cancer is his 60s. SOCIAL HISTORY: She denies alcohol and drug use. There is a remote tobacco use history. REVIEW OF SYSTEMS: GENERAL: Denies fever or chills. Denies night sweats. EYES: Denies vision changes. Denies eye pain. RESPIRATIONS: Denies cough. Denies congestion. CARDIOVASCULAR: Denies chest pain. Denies palpitations. GI: Denies nausea. Denies vomiting. Denies diarrhea. : Denies incontinence. Denies dysuria. SKIN: Denies rash. Denies lesions. MUSCULOSKELETAL: Denies pain. Denies stiffness. NEURO: Denies weakness. Denies numbness. PSYCH: Denies anxiety. Denies depression. ENT: Denies nasal congestion. Denies rhinorrhea. PHYSICAL EXAMINATION: VITAL SIGNS: Temperature 97.8, pulse 68, respirations 20, O2 sats are 98% on room air, and blood pressure is 128/78. Current weight is 112 kg. GENERAL: She is alert and oriented x3, no acute distress. EYES: There is no mattering, no tearing. NECK: Supple without lymphadenopathy. CARDIOVASCULAR: Regular rate and rhythm with no murmurs. RESPIRATIONS: No retractions. Clear to auscultation bilaterally. ABDOMEN: Soft, nontender to palpation. EXTREMITIES: No clubbing. No cyanosis. No edema. MUSCULOSKELETAL: Left knee is bandaged and braced. NEURO: The patient endorses left leg numbness, status post nerve block. SKIN: Warm and dry. No cyanosis. LABORATORY DATA: No labs on admission by primary team. ASSESSMENT AND PLAN: 1. Status post left knee arthroplasty revision. We will continue current regimen for pain management. Anticipate switching to oral medications in the next 1 to 2 days. We will continue prophylactic antibiotics per primary team. Continue normal rehabilitation course in the hospital on the outpatient setting with likely SNF versus home health disposition. 2. Hypertension. The patient is hemodynamically stable at this time. We will continue her atenolol, hydrochlorothiazide, and verapamil. She denies any chest pain or palpitations. 3. Hyperlipidemia. The patient is not currently on a statin, is well controlled on fish oil. We will continue that at this time. 4. Gastroesophageal reflux disease. We will continue her pantoprazole. DISPOSITION: Length of hospital stay, 2 plus days. Symptomatic medications will be provided. History and physical exam as well as management discussed with Dr. Adan Goldstein. Job ID: [id number] [facility]
[2019-03-12 04:47] LABS: Mean Corpuscular HGB CONC 33.9 g/dL (32.0-36.0); Mean Corpuscular Hemoglobin 31.4 pg (27.0-31.0); Mean Corpuscular Volume 92.6 fL (78.0-98.0); Mean Platelet Volume 8.4 fL (7.4-10.4); Platelet Count 169 thou/uL (130-400); RBC Distribution Width 12.6 % (11.5-14.5); Red Blood Cell (RBC) Count 3.49 mill/uL (4.20-5.40); White Blood Cell (WBC) Count 8.4 thou/uL (4.8-10.8)
--- NOTE | 2019-03-12 06:32 | PDOC.FM ---
- Subjective Subjective: Kim Cota seen at bedside this morning. She is POD #1 from left total knee replacement. She is doing well, states that her pain is well controlled. There were no acute events overnight and she only complains over acid reflux this morning. She denies any fever, chills, chest pain, dyspnea, n/v. - Objective MAR Reviewed: Yes Vital Signs & Weight: Vital Signs (12 hours) Temp Pulse Resp BP Pulse Ox 03/12/19 04:40 99.1 F 76 20 116/71 94 L 03/12/19 00:39 98.4 F 74 20 116/72 94 L 03/11/19 20:46 97.8 F 68 20 128/78 93 L 03/11/19 20:15 93 L Weight Weight 111.584 kg I&O: 03/10/19 03/11/19 03/12/19 06:59 06:59 06:59 Intake Total 650 Output Total 700 Balance -50 Result Diagrams: 03/12/19 04:23 Phys Exam - Physical Examination Constitutional: NAD HEENT: moist MMs, sclera anicteric Neck: supple, full ROM Respiratory: no wheezing, no rales, no rhonchi, clear to auscultation bilateral Cardiovascular: RRR, no significant murmur Gastrointestinal: soft, non-tender, no distention Musculoskeletal: pulses present Neurological: non-focal, normal sensation, moves all 4 limbs Psychiatric: normal affect, A&O x 3 Skin: no rash, normal turgor Dx/Plan (1) Status post left knee replacement Code(s): Z96.652 - PRESENCE OF LEFT ARTIFICIAL KNEE JOINT Status: Acute (2) Essential hypertension Code(s): I10 - ESSENTIAL (PRIMARY) HYPERTENSION Status: Chronic (3) GERD (gastroesophageal reflux disease) Code(s): K21.9 - GASTRO-ESOPHAGEAL REFLUX DISEASE WITHOUT ESOPHAGITIS Status: Chronic (4) HLD (hyperlipidemia) Code(s): E78.5 - HYPERLIPIDEMIA, UNSPECIFIED Status: Chronic - Plan Plan: 1) POD #1 s/p left total knee replacement - routine post op and pain management per primary team - continue ppx abx therapy per primary team - continue routine rehab course 2) HTN: - stable overnight - continue home atenolol, verapamil ER, and HCTZ - monitor BPs 3) HLD - well controlled on fish oil - not on statin 4) GERD - continue pantoprazole
[2019-03-12] MEDS: Aspirin Chewable 81 MG TAB PO SCH ×2 (08:36→21:21)
[2019-03-12] MEDS: Ferrous Gluconate 324 MG TAB PO SCH ×2 (08:36→21:21)
[2019-03-12] MEDS: Calcium Carbonate + Vit D 1 TAB PO SCH (08:36)
[2019-03-12] MEDS: Fish Oil 1,000 MG CAP PO SCH (08:36)
[2019-03-12] MEDS: Senokot S 8.6-50 MG TAB PO SCH ×2 (08:36→21:21)
[2019-03-12] MEDS: Multivitamin W/ Minerals 1 TAB PO SCH (08:36)
[2019-03-12] MEDS: Atenolol 50 MG TAB PO SCH (08:37)
[2019-03-12] MEDS: Sodium Chloride 0.9% 1,000 ML IV SCH ×2 (08:43→17:12)
[2019-03-12] MEDS: Hydrochlorothiazide 25 MG TAB PO SCH (08:48)
[2019-03-12] MEDS: fentaNYL Citrate/PF 2,000 MCG in Sodium Chloride 0.9% 60 ML IV PRN (12:17)
[2019-03-12] MEDS: Verapamil SR 120 MG TAB PO SCH (21:21)
[2019-03-13] MEDS ORDERED: Naproxen 500 MG TAB PO PRN (00:35)
[2019-03-13] MEDS: Sodium Chloride 0.9% 1,000 ML IV SCH ×2 (05:09→16:19)
[2019-03-13] MEDS: Ropivacaine HCl/PF 250 ML in Premix Bag 1 BAG NERVE BLCK SCH (05:24)
[2019-03-13 05:28] LABS: Hemoglobin 10.6 g/dL (12.0-16.0); Mean Corpuscular HGB CONC 33.6 g/dL (32.0-36.0); Mean Corpuscular Hemoglobin 30.9 pg (27.0-31.0); Mean Corpuscular Volume 91.9 fL (78.0-98.0); Mean Platelet Volume 8.3 fL (7.4-10.4); Platelet Count 153 thou/uL (130-400); RBC Distribution Width 12.6 % (11.5-14.5); Red Blood Cell (RBC) Count 3.42 mill/uL (4.20-5.40); White Blood Cell (WBC) Count 11.1 thou/uL (4.8-10.8)
--- NOTE | 2019-03-13 06:09 | PDOC.FM ---
- Subjective Subjective: Kim Cota seen at bedside this morning. She has no complaints, states that she is feeling well. Overnight, she had a temperature of 101.2. This morning, her temp is 100.2. She denies any complaints, denies chills, chest pain, dyspnea, n/v. She has a morrison in place since procedure. - Objective MAR Reviewed: Yes Vital Signs & Weight: Vital Signs (12 hours) Temp Pulse Resp BP Pulse Ox 03/13/19 05:05 100.2 F H 94 18 97/66 93 L 03/13/19 00:41 101.2 F H 95 18 103/65 94 L 03/12/19 20:43 100.3 F H 86 18 107/72 94 L 03/12/19 20:00 94 L Weight Admit Weight 111.584 kg Weight 111.584 kg I&O: 03/11/19 03/12/19 03/13/19 06:59 06:59 06:59 Intake Total 1350 1035 Output Total 1350 1150 Balance 0 -115 Result Diagrams: 03/13/19 05:02 Phys Exam - Physical Examination Constitutional: NAD HEENT: moist MMs, sclera anicteric Neck: no JVD, supple, full ROM Respiratory: no wheezing, no rales, no rhonchi, clear to auscultation bilateral Cardiovascular: RRR, no significant murmur Gastrointestinal: soft, non-tender, no distention Musculoskeletal: no edema, pulses present Neurological: non-focal, normal sensation, moves all 4 limbs Psychiatric: normal affect, A&O x 3 Skin: no rash Dx/Plan (1) Status post left knee replacement Code(s): Z96.652 - PRESENCE OF LEFT ARTIFICIAL KNEE JOINT Status: Acute (2) Essential hypertension Code(s): I10 - ESSENTIAL (PRIMARY) HYPERTENSION Status: Chronic (3) GERD (gastroesophageal reflux disease) Code(s): K21.9 - GASTRO-ESOPHAGEAL REFLUX DISEASE WITHOUT ESOPHAGITIS Status: Chronic (4) HLD (hyperlipidemia) Code(s): E78.5 - HYPERLIPIDEMIA, UNSPECIFIED Status: Chronic - Plan Plan: 1) POD #1 s/p left total knee replacement - routine post op and pain management per primary team - continue ppx abx therapy per primary team - continue routine rehab course - patient did fever overnight, Tmax was 101.2 - Checking UA and Ur Cx, Blood Cx, and CXR this morning - Incision site showed no signs of erythema or drainage 2) HTN: - stable overnight - continue home atenolol, verapamil ER, and HCTZ - monitor BPs 3) HLD - well controlled on fish oil - not on statin 4) GERD - continue pantoprazole Addendum - Attending - Attending Attestation Date/Time: 03/13/191954 I personally evaluated the patient and discussed the management with Dr. Jo I agree with the History, Examination, Assessment and Plan documented above with any addition or exceptions noted below.
[2019-03-13] MEDS: Multivitamin W/ Minerals 1 TAB PO SCH (09:51)
[2019-03-13] MEDS: Ferrous Gluconate 324 MG TAB PO SCH ×2 (09:51→21:00)
[2019-03-13] MEDS: Fish Oil 1,000 MG CAP PO SCH (09:51)
[2019-03-13] MEDS: Senokot S 8.6-50 MG TAB PO SCH ×2 (09:52→21:00)
[2019-03-13] MEDS: fentaNYL Citrate/PF 2,000 MCG in Sodium Chloride 0.9% 60 ML IV PRN (09:53)
[2019-03-13] MEDS: Calcium Carbonate + Vit D 1 TAB PO SCH (09:53)
[2019-03-13] MEDS: Aspirin Chewable 81 MG TAB PO SCH ×2 (09:53→20:59)
[2019-03-13] MEDS: Atenolol 50 MG TAB PO SCH ×2 (10:35→16:42)
[2019-03-13] MEDS: Hydrochlorothiazide 25 MG TAB PO SCH ×2 (10:35→16:42)
--- NOTE | 2019-03-13 11:30 | RAD ---
SINGLE VIEW CHEST: Date: 03/13/19 COMPARISON: 12/18/18. HISTORY: Postoperative fever. FINDINGS: Single view of the chest shows a normal sized cardiomediastinal silhouette. There is no evidence of c onsolidation, mass, or pleural effusion. Scoliotic curvature seen in the spine. IMPRESSION: No evidence of acute cardiopulmonary disease. POS: [facility]
--- NOTE | 2019-03-13 11:34 | PRG ---
DATE OF SERVICE: 03/13/2019 SUBJECTIVE: Kim is a 74-year-old female postop day 2 from a left total knee arthroplasty revision utilizing a total constrained stemmed prosthesis. She is doing relatively well. Pain was very well controlled yesterday and overnight she has ambulated 40 to 50 feet. OBJECTIVE: VITAL SIGNS: Current temperature is 100.2, pulse 94, respiratory rate 18, blood pressure 97/66. GENERAL: She is alert and oriented to person, place, time, situation, responsive and appropriate to examiner. There is no strike through in her incision. She has a dense block in the left lower extremity. LABORATORY DATA: Hemoglobin and hematocrit 10.63 and 31.4. IMPRESSION: 1. 74-year-old female, postop day 2, left total knee arthroplasty revision. 2. Anemia. PLAN: We will keep her another night, probable discharge to home tomorrow, which is the patient's desire. Job ID: [id number]
[2019-03-13 20:53] LABS: Bilirubin Negative (Negative); Blood, Urine Negative (Negative); Clarity CLEAR (Clear); Glucose, Urine (Dipstick) Negative (Negative); Leukocyte Trace (Negative); Nitrite Negative (Negative); Protein, Urine (Dipstick) Negative (Neg-Trace); Specific Gravity, Urine 1.009 (1.002-1.036); Urobilinogen 0.2 mg/dL (0.2-1.0)
[2019-03-13 20:54] LABS: Bacteria/HPF None Seen HPF (None Seen); Hyaline Casts/LPF 0-3 HYALINE CAST LPF (0-3 Hyaline); Pathc Cast-AUWi Flag 0.27 (0-2.49); RBC/HPF 0-3 HPF (0-3); Squamous Epithelial 0-3 HPF (0-3)
[2019-03-13 20:56] LABS: Urine Culture Reflex Yes Yes
[2019-03-13] MEDS: Verapamil SR 120 MG TAB PO SCH (21:00)
[2019-03-14] MEDS: Sodium Chloride 0.9% 1,000 ML IV SCH ×3 (01:42→20:15)
[2019-03-14 06:06] LABS: Hemoglobin 9.9 g/dL (12.0-16.0); Mean Corpuscular HGB CONC 32.8 g/dL (32.0-36.0); Mean Corpuscular Hemoglobin 30.6 pg (27.0-31.0); Mean Corpuscular Volume 93.3 fL (78.0-98.0); Mean Platelet Volume 8.6 fL (7.4-10.4); Platelet Count 143 thou/uL (130-400); RBC Distribution Width 12.4 % (11.5-14.5); Red Blood Cell (RBC) Count 3.24 mill/uL (4.20-5.40); White Blood Cell (WBC) Count 10.7 thou/uL (4.8-10.8)
[2019-03-14 06:24] LABS: Anion Gap 12 mmol/L (10-20); BUN (Urea Nitrogen) 10 mg/dL (9.8-20.1); Calc. Creatinine Clearance 130 mL/min (70-130); Calcium 8.8 mg/dL (7.8-10.44); Carbon Dioxide 23 mmol/L (23-31); Chloride 100 mmol/L (98-107); Estimated GFR-MDRD Greater than 90; Glucose 94 mg/dL (83-110); Potassium 3.3 mmol/L (3.5-5.1); Sodium 132 mmol/L (136-145)
[2019-03-14 06:49] LABS: #Eosinphils 0.2 thou/uL (0.0-0.7); #Lymphocytes 1.6 thou/uL (1.20-3.40); #Monocytes 1.2 thou/uL (0.11-0.59); #Neutrophils 7.8 thou/uL (1.40-6.50); %Basophils 0.2 % (0.0-1.0); %Eosinophils 2.3 % (0.0-10.0); %Lymphocytes 14.9 % (21.0-51.0); %Monocytes 10.6 % (0.0-10.0); %Neutrophils 72.1 % (42.0-75.0); Hemoglobin 9.9 g/dL (12.0-16.0); Mean Corpuscular HGB CONC 33.2 g/dL (32.0-36.0); Mean Corpuscular Hemoglobin 30.8 pg (27.0-31.0); Mean Corpuscular Volume 92.8 fL (78.0-98.0); Mean Platelet Volume 8.8 fL (7.4-10.4); Platelet Count 140 thou/uL (130-400); RBC Distribution Width 12.4 % (11.5-14.5); Red Blood Cell (RBC) Count 3.22 mill/uL (4.20-5.40); White Blood Cell (WBC) Count 10.8 thou/uL (4.8-10.8)
--- NOTE | 2019-03-14 08:27 | PDOC.FM ---
- Subjective Subjective: Kim Cota seen at bedside this morning. She is POD3 from left total knee revision. She has no complaints this morning and there were no acute events overnight. This morning her BP is 92/61, she is asymptomatic. She denies any fever, chills, chest pain, dyspnea, n/v. Patient states that she has not been able to ambulate as well as she would like. PT has recommended rehab or if she progresses rapidly then HH would be sufficient. - Objective MAR Reviewed: Yes Vital Signs & Weight: Vital Signs (12 hours) Temp Pulse Resp BP Pulse Ox 03/14/19 04:39 99.3 F 73 16 92/61 94 L 03/14/19 00:55 99.5 F 73 16 105/67 94 L 03/13/19 20:33 100.6 F H 87 16 146/70 H 96 Weight Admit Weight 111.584 kg Weight 111.584 kg I&O: 03/13/19 03/14/19 03/15/19 06:59 06:59 06:59 Intake Total 1035 1060 Output Total 1150 700 Balance -115 360 Result Diagrams: 03/14/19 04:59 03/14/19 04:59 Phys Exam - Physical Examination Constitutional: NAD HEENT: moist MMs, sclera anicteric Neck: supple, full ROM Respiratory: no wheezing, no rales, no rhonchi, clear to auscultation bilateral Cardiovascular: RRR, no significant murmur Gastrointestinal: soft, non-tender, no distention Musculoskeletal: no edema, pulses present Neurological: moves all 4 limbs Psychiatric: normal affect, A&O x 3 Skin: no rash Dx/Plan (1) Status post left knee replacement Code(s): Z96.652 - PRESENCE OF LEFT ARTIFICIAL KNEE JOINT Status: Acute (2) Essential hypertension Code(s): I10 - ESSENTIAL (PRIMARY) HYPERTENSION Status: Chronic (3) GERD (gastroesophageal reflux disease) Code(s): K21.9 - GASTRO-ESOPHAGEAL REFLUX DISEASE WITHOUT ESOPHAGITIS Status: Chronic (4) HLD (hyperlipidemia) Code(s): E78.5 - HYPERLIPIDEMIA, UNSPECIFIED Status: Chronic - Plan Plan: 1) POD #3 s/p left total knee replacement - routine post op and pain management per primary team - continue ppx abx therapy per primary team - continue routine rehab course - patient did fever overnight again, Tmax was 100.6 - CXR on 03/12 negative, UA only pos for 4-6 wbc, blood cx ngtd, urine culture pending - patient is asymptomatic - Incision site showed no signs of erythema or drainage 2) HTN: - BPs have been labile, anywhere from 92/61 to 150/78, will hold morning HCTZ and atenolol if BPs remain low - continue home atenolol, verapamil, and HCTZ - monitor BPs 3) HLD - well controlled on fish oil - not on statin 4) GERD - continue pantoprazole Addendum - Attending - Attending Attestation Date/Time: 03/14/19 [id number] I personally evaluated the patient and discussed the management with Dr. Ríos I agree with the History, Examination, Assessment and Plan documented above with any addition or exceptions noted below.
[2019-03-14] MEDS: Senokot S 8.6-50 MG TAB PO SCH ×2 (09:40→20:50)
[2019-03-14] MEDS: Aspirin Chewable 81 MG TAB PO SCH ×2 (09:40→20:50)
[2019-03-14] MEDS: Calcium Carbonate + Vit D 1 TAB PO SCH (09:40)
[2019-03-14] MEDS: Fish Oil 1,000 MG CAP PO SCH (09:40)
[2019-03-14] MEDS: Multivitamin W/ Minerals 1 TAB PO SCH (09:40)
[2019-03-14] MEDS: Ferrous Gluconate 324 MG TAB PO SCH ×2 (09:41→20:50)
[2019-03-14] MEDS: Atenolol 50 MG TAB PO SCH (09:43)
[2019-03-14] MEDS: Hydrochlorothiazide 25 MG TAB PO SCH (09:44)
[2019-03-14] MEDS ORDERED: traMADol HCl 50 MG TAB PO PRN (11:47)
--- NOTE | 2019-03-14 13:02 | PRG ---
DATE OF SERVICE: 03/14/2019 SUBJECTIVE: Kim is postop day 3 from a left total knee arthroplasty revision. She has improved her ambulatory distances to about 150 feet, but she is not quite to the point where she is independent getting in and out of chair and back and forth to toilet. She does not want to go to rehab or skilled facility. OBJECTIVE: VITAL SIGNS: Temperature 97, pulse 77, respiratory rate 16, blood pressure 92/55. GENERAL: She is alert and oriented to person, place, time, situation, grossly nonfocal, appropriate response with examiner. EXTREMITIES: Incision is clean without erythema. She is neurovascularly intact. LABORATORY DATA: Hemoglobin and hematocrit of 9.9 and 29.8. IMPRESSION: 1. A 74-year-old female, postop day #3 left total knee arthroplasty revision. 2. Anemia. PLAN: Continue current care. Defer hypokalemia to Medicine. She will probably spend the next day or so in the hospital and discharge directly to home. Job ID: [id number]
[2019-03-14] MEDS ORDERED: Potassium Chloride 20 MEQ TAB PO SCH (13:15)
[2019-03-14] MEDS: Verapamil SR 120 MG TAB PO SCH (20:50)
[2019-03-14] MEDS: traMADol HCl 50 MG TAB PO PRN (20:55)
[2019-03-15] MEDS: traMADol HCl 50 MG TAB PO PRN ×4 (02:50→22:50)
[2019-03-15] MEDS: Sodium Chloride 0.9% 1,000 ML IV SCH ×2 (04:54→09:07)
[2019-03-15 06:02] LABS: Hemoglobin 9.6 g/dL (12.0-16.0); Mean Corpuscular HGB CONC 33.8 g/dL (32.0-36.0); Mean Corpuscular Hemoglobin 31.2 pg (27.0-31.0); Mean Corpuscular Volume 92.4 fL (78.0-98.0); Mean Platelet Volume 8.5 fL (7.4-10.4); Platelet Count 164 thou/uL (130-400); RBC Distribution Width 12.4 % (11.5-14.5); Red Blood Cell (RBC) Count 3.06 mill/uL (4.20-5.40); White Blood Cell (WBC) Count 9.4 thou/uL (4.8-10.8)
--- NOTE | 2019-03-15 06:31 | PDOC.FM ---
- Subjective Subjective: NAEO. Reports feeling well, some subjective fevers. Eating well. No dysuria, ambulating with PT. No CP or feeling SOB - Objective Vital Signs & Weight: Vital Signs (12 hours) Temp Pulse Resp BP Pulse Ox 03/15/19 03:42 98.4 F 88 20 101/67 98 03/15/19 00:20 99.3 F 89 20 104/70 95 03/14/19 20:16 100.0 F H 90 20 104/69 97 03/14/19 20:00 97 Weight Admit Weight 111.584 kg Weight 111.584 kg I&O: 03/13/19 03/14/19 03/15/19 06:59 06:59 06:59 Intake Total 1035 1060 1160 Output Total 2032 688 6257 Balance -115 360 -40 Result Diagrams: 03/15/19 05:29 03/15/19 06:55 Phys Exam - Physical Examination Constitutional: NAD HEENT: PERRLA, moist MMs Respiratory: no wheezing, clear to auscultation bilateral Cardiovascular: RRR, no significant murmur Gastrointestinal: soft Neurological: non-focal Psychiatric: normal affect, A&O x 3 Dx/Plan (1) Status post left knee replacement Code(s): Z96.652 - PRESENCE OF LEFT ARTIFICIAL KNEE JOINT Status: Acute (2) Elevated temperature Code(s): R50.9 - FEVER, UNSPECIFIED Status: Acute (3) Essential hypertension Code(s): I10 - ESSENTIAL (PRIMARY) HYPERTENSION Status: Chronic (4) GERD (gastroesophageal reflux disease) Code(s): K21.9 - GASTRO-ESOPHAGEAL REFLUX DISEASE WITHOUT ESOPHAGITIS Status: Chronic (5) HLD (hyperlipidemia) Code(s): E78.5 - HYPERLIPIDEMIA, UNSPECIFIED Status: Chronic - Plan Plan: #POD #4 s/p left total knee replacement - routine post op and pain management per primary team - no fevers overnight. Tm 100.1 w/o tylenol. Thus far blood cx, urine cx has been negative for infection. No leukocytosis on AM labs. #HTN - stable overnight - continue home atenolol, verapamil ER, and HCTZ - monitor BPs #HLD - well controlled on fish oil - not on statin #GERD - continue pantoprazole dispo: per primary team, patient stable from our point of view, pending d/c to rehab
[2019-03-15 07:28] LABS: Anion Gap 14 mmol/L (10-20); BUN (Urea Nitrogen) 9 mg/dL (9.8-20.1); Calc. Creatinine Clearance 138 mL/min (70-130); Calcium 8.6 mg/dL (7.8-10.44); Carbon Dioxide 25 mmol/L (23-31); Chloride 103 mmol/L (98-107); Estimated GFR-MDRD Greater than 90; Glucose 90 mg/dL (83-110); Potassium 3.6 mmol/L (3.5-5.1); Sodium 138 mmol/L (136-145)
[2019-03-15] MEDS: Atenolol 50 MG TAB PO SCH (08:57)
[2019-03-15] MEDS: Hydrochlorothiazide 25 MG TAB PO SCH (08:57)
[2019-03-15] MEDS: Fish Oil 1,000 MG CAP PO SCH (09:01)
[2019-03-15] MEDS: Ferrous Gluconate 324 MG TAB PO SCH ×2 (09:02→20:19)
[2019-03-15] MEDS: Calcium Carbonate + Vit D 1 TAB PO SCH (09:02)
[2019-03-15] MEDS: Senokot S 8.6-50 MG TAB PO SCH ×2 (09:02→20:19)
[2019-03-15] MEDS: Aspirin Chewable 81 MG TAB PO SCH ×2 (09:02→20:18)
[2019-03-15] MEDS: Multivitamin W/ Minerals 1 TAB PO SCH (09:02)
[2019-03-15] MEDS: CeleCOXIB 100 MG CAP PO SCH (09:03)
[2019-03-15] MEDS: Ropivacaine HCl/PF 250 ML in Premix Bag 1 BAG NERVE BLCK SCH (09:31)
[2019-03-15] MEDS: Verapamil SR 120 MG TAB PO SCH (20:19)
[2019-03-16] MEDS: Sodium Chloride 0.9% 1,000 ML IV SCH ×3 (02:46→21:23)
--- NOTE | 2019-03-16 06:22 | PDOC.FM ---
- Subjective Subjective: NAEO. Denies fevers, chills. Walking. No issues. Denies urinary frequency, dysuria, hematuria - Objective Vital Signs & Weight: Vital Signs (12 hours) Temp Pulse Resp BP Pulse Ox 03/16/19 04:40 98.6 F 82 20 105/71 96 03/16/19 00:31 98.6 F 94 20 109/73 95 03/15/19 20:10 99.3 F 100 20 130/74 96 Weight Admit Weight 111.584 kg Weight 111.584 kg I&O: 03/14/19 03/15/19 03/16/19 06:59 06:59 06:59 Intake Total 1060 1880 1800 Output Total 700 3300 Balance 360 -1420 1800 Result Diagrams: 03/15/19 05:29 03/15/19 06:55 Phys Exam - Physical Examination Constitutional: NAD HEENT: PERRLA, moist MMs Respiratory: no wheezing, clear to auscultation bilateral Cardiovascular: RRR, no significant murmur Gastrointestinal: soft, non-tender, no distention Psychiatric: normal affect, A&O x 3 Skin: cap refill <2 seconds Dx/Plan (1) Status post left knee replacement Code(s): Z96.652 - PRESENCE OF LEFT ARTIFICIAL KNEE JOINT Status: Acute (2) Elevated temperature Code(s): R50.9 - FEVER, UNSPECIFIED Status: Acute (3) Essential hypertension Code(s): I10 - ESSENTIAL (PRIMARY) HYPERTENSION Status: Chronic (4) GERD (gastroesophageal reflux disease) Code(s): K21.9 - GASTRO-ESOPHAGEAL REFLUX DISEASE WITHOUT ESOPHAGITIS Status: Chronic (5) HLD (hyperlipidemia) Code(s): E78.5 - HYPERLIPIDEMIA, UNSPECIFIED Status: Chronic - Plan Plan: #POD #5 s/p left total knee replacement - routine post op and pain management per primary team - no fevers overnight. UA with psueodmonas <10,000 CFU, patient w/ no morrison, no urinary sxs, no fever. No abx indicated at this time, will wait for urine cultur to finalize #HTN - BP stable - continue home atenolol, verapamil ER, and HCTZ - monitor BPs #HLD - well controlled on fish oil - not on statin #GERD - continue pantoprazole dispo: per primary team, patient stable from our point of view, pending d/c to home likely tomorrow
[2019-03-16] MEDS: traMADol HCl 50 MG TAB PO PRN ×3 (07:08→21:18)
[2019-03-16] MEDS: Atenolol 50 MG TAB PO SCH (09:23)
[2019-03-16] MEDS: Hydrochlorothiazide 25 MG TAB PO SCH (09:23)
[2019-03-16] MEDS: Ferrous Gluconate 324 MG TAB PO SCH ×2 (09:23→21:11)
[2019-03-16] MEDS: CeleCOXIB 100 MG CAP PO SCH (09:23)
[2019-03-16] MEDS: Calcium Carbonate + Vit D 1 TAB PO SCH (09:24)
[2019-03-16] MEDS: Fish Oil 1,000 MG CAP PO SCH (09:24)
[2019-03-16] MEDS: Multivitamin W/ Minerals 1 TAB PO SCH (09:24)
[2019-03-16] MEDS: Senokot S 8.6-50 MG TAB PO SCH ×2 (09:24→21:12)
[2019-03-16] MEDS: Aspirin Chewable 81 MG TAB PO SCH ×2 (09:30→21:12)
[2019-03-16] MEDS: Verapamil SR 120 MG TAB PO SCH (21:12)
[2019-03-17] MEDS: traMADol HCl 50 MG TAB PO PRN (06:17)
[2019-03-17] MEDS: Sodium Chloride 0.9% 1,000 ML IV SCH (07:38)
[2019-03-17] MEDS: CeleCOXIB 100 MG CAP PO SCH (09:14)
[2019-03-17] MEDS: Multivitamin W/ Minerals 1 TAB PO SCH (09:14)
[2019-03-17] MEDS: Atenolol 50 MG TAB PO SCH (09:15)
[2019-03-17] MEDS: Fish Oil 1,000 MG CAP PO SCH (09:15)
[2019-03-17] MEDS: Aspirin Chewable 81 MG TAB PO SCH (09:15)
[2019-03-17] MEDS: Hydrochlorothiazide 25 MG TAB PO SCH (09:15)
[2019-03-17] MEDS: Ferrous Gluconate 324 MG TAB PO SCH (09:15)
[2019-03-17] MEDS: Calcium Carbonate + Vit D 1 TAB PO SCH (09:15)
[2019-03-17] MEDS: Senokot S 8.6-50 MG TAB PO SCH (09:18)
[2019-03-17 11:32] VITALS: BP 113/73; TEMP 98.2
--- NOTE | 2019-03-17 11:33 | PRG ---
DATE OF SERVICE: 03/17/2019 This morning, Ms. Cota is pleasant, awake, and alert. She is having only minimal knee pain. Her blood pressure is well controlled. She will likely be discharged later today. Job ID: [id number]
--- NOTE | 2019-03-17 12:26 | PDOC.FM ---
- Subjective Subjective: Doing well, no acute events, no new complaints - Objective MAR Reviewed: Yes Vital Signs & Weight: Vital Signs (12 hours) Temp Pulse Resp BP BP Pulse Ox 03/17/19 11:31 98.2 F 66 16 113/73 98 03/17/19 09:15 79 03/17/19 07:00 98 F 79 12 115/76 96 03/17/19 04:22 99.0 F 84 20 132/84 96 Weight Admit Weight 111.584 kg Weight 111.584 kg I&O: 03/16/19 03/17/19 03/18/19 06:59 06:59 06:59 Intake Total 1800 550 Balance 1800 550 Result Diagrams: 03/15/19 05:29 03/15/19 06:55 Phys Exam - Physical Examination Constitutional: NAD HEENT: moist MMs Respiratory: clear to auscultation bilateral Cardiovascular: RRR, no significant murmur Gastrointestinal: soft, non-tender Musculoskeletal: no edema Neurological: moves all 4 limbs Psychiatric: normal affect, A&O x 3 Skin: no rash Dx/Plan (1) Status post left knee replacement Code(s): Z96.652 - PRESENCE OF LEFT ARTIFICIAL KNEE JOINT Status: Acute (2) Essential hypertension Code(s): I10 - ESSENTIAL (PRIMARY) HYPERTENSION Status: Chronic (3) GERD (gastroesophageal reflux disease) Code(s): K21.9 - GASTRO-ESOPHAGEAL REFLUX DISEASE WITHOUT ESOPHAGITIS Status: Chronic (4) HLD (hyperlipidemia) Code(s): E78.5 - HYPERLIPIDEMIA, UNSPECIFIED Status: Chronic - Plan Plan: 1. POD #6 s/p left total knee replacement - Per ortho, plan to dc home today with home PT 2. HTN - BP stable - continue home meds 3. HLD - home meds 4. GERD - continue pantoprazole dispo: stable, ready to dc from our perspective. Will follow.
--- NOTE | 2019-03-17 12:45 | PRG ---
DATE OF SERVICE: 03/15/2019 ADDENDUM: Please see the note from Dr. Cuenca, for which I agree. The patient we were consulted on status post left total knee revision on 03/11 with a little postop fever and we are managing medications. Thorough workup of the postop fever did not reveal a definitive source thought to be likely atelectasis, what sounds like the knee itself is doing okay and will be discharged today. It is unclear if she is going to a rehab facility, which we encouraged versus home, which the patient is wanting to leave that up to her surgeon. Otherwise, continue same home medicines. Job ID: [id number]
--- NOTE | 2019-03-17 14:15 | PRG ---
DATE OF SERVICE: 03/16/2019 ADDENDUM: Please see the note from Dr. Kelly for which I agree. The patient was seen, evaluated, discussed, and examined with the residents by bedside. The patient is postop day 5, basically status post left knee revision. She was having some postop fever, but that has cleared. We are really just following her for a blood pressure management, which has been fine. We are going to sign off, but it sounds like the patient is probably going home tomorrow with home health and physical therapy. Job ID: [id number]
--- NOTE | 2019-03-18 14:19 | DIS ---
DATE OF ADMISSION: 03/11/2019 DATE OF DISCHARGE: 03/17/2019 PREOPERATIVE DIAGNOSIS: Left knee hardware failure. POSTOPERATIVE DIAGNOSIS: Left knee hardware failure. PROCEDURES PERFORMED: The patient underwent a left total knee revision. Hospital stay was unremarkable. She was admitted to [address] worked with staff, Physical Therapy, Occupational Therapy. First few days, she did not do much just due to pain and fatigue, but otherwise after that she got motivated and did quiet well on her progress each day. By 03/17/2019, she was ready to be discharged home. DISCHARGE CONDITION: Good/stable. DISPOSITION: Home with family. FOLLOWUP: Would be in 2 to 4 weeks or sooner if there are problems or concerns. DISCHARGE MEDICATIONS: Given with usage instructions. Job ID: [id number]
== END 2019-03-17 14:08 | disposition home or self-care (01) | DRG 468 ==
LOC: SJJU 03-11 07:40 → SURG B 03-11 16:33
PROVIDERS: ADMIT Orthopaedic Surgery; ATTEND Orthopaedic Surgery
PROC: 0SPD0JZ Removal of Synthetic Substitute from Left Knee Joint, Open Approach (ICD-10-PCS; principal; 2019-03-11)
PROC: 0SRD0J9 Replacement of Left Knee Joint with Synthetic Substitute, Cemented, Open Approach (ICD-10-PCS; 2019-03-11)
DX: T84.031A Mechanical loosening of internal left hip prosthetic joint, initial encounter (principal); I10 Essential (primary) hypertension; E78.5 Hyperlipidemia, unspecified; K21.9 Gastro-esophageal reflux disease without esophagitis; D64.9 Anemia, unspecified; R50.82 Postprocedural fever; Z90.710 Acquired absence of both cervix and uterus; Z96.641 Presence of right artificial hip joint; Z96.651 Presence of right artificial knee joint; Z88.6 Allergy status to analgesic agent; Z79.82 Long term (current) use of aspirin; Z79.899 Other long term (current) drug therapy
CPT/HCPCS: 36415; 71045; 80048; 81001; 85027; 86850; 86870; 86900; 86901; 86922; 87040; 87086; 88305; 88331; 88332; C1713; C1776; J0690; J2250; J2795; J3010; J3370; J3490; J7050

== ENCOUNTER 2019-06-03 07:28 | Emergency (ER) | payer MEDICARE ==
[2019-06-03 08:26] LABS: #Eosinphils 0.2 thou/uL (0.0-0.7); #Monocytes 0.4 thou/uL (0.11-0.59); #Neutrophils 4.2 thou/uL (1.40-6.50); %Basophils 0.5 % (0.0-1.0); %Eosinophils 3.1 % (0.0-10.0); %Lymphocytes 29.3 % (21.0-51.0); %Monocytes 6.1 % (0.0-10.0); Hemoglobin 13.5 g/dL (12.0-16.0); Mean Corpuscular HGB CONC 33.6 g/dL (32.0-36.0); Mean Corpuscular Hemoglobin 30.4 pg (27.0-31.0); Mean Corpuscular Volume 90.3 fL (78.0-98.0); Mean Platelet Volume 8.1 fL (7.4-10.4); Platelet Count 239 thou/uL (130-400); Red Blood Cell (RBC) Count 4.44 mill/uL (4.20-5.40); White Blood Cell (WBC) Count 6.8 thou/uL (4.8-10.8)
[2019-06-03 08:48] LABS: ALT (SGPT) 10 U/L (8-55); AST (SGOT) 16 U/L (5-34); Albumin 4.2 g/dL (3.4-4.8); Alkaline Phosphatase 69 U/L (40-150); Anion Gap 12 mmol/L (10-20); BUN (Urea Nitrogen) 14 mg/dL (9.8-20.1); Bilirubin, Total 0.6 mg/dL (0.2-1.2); Calc. Creatinine Clearance 0 mL/min (70-130); Calcium 9.6 mg/dL (7.8-10.44); Carbon Dioxide 24 mmol/L (23-31); Chloride 103 mmol/L (98-107); Estimated GFR-MDRD 89; Globulin 4.4 g/dL (2.4-3.5); Glucose 86 mg/dL (83-110); Potassium 3.3 mmol/L (3.5-5.1); Protein, Total 8.6 g/dL (6.0-8.3); Sodium 136 mmol/L (136-145)
[2019-06-03 08:51] LABS: Bilirubin Negative (Negative); Blood, Urine Negative (Negative); Clarity Clear (Clear); Glucose, Urine (Dipstick) Normal (Negative); Leukocyte Negative Leu/uL (Negative); Nitrite Negative (Negative); Protein, Urine (Dipstick) Negative (Neg-Trace); Urobilinogen Normal mg/dL (Less than 2)
[2019-06-03 08:59] LABS: Amphetamine Not Detected (NotDetected); Barbiturates Screen Not Detected (NotDetected); Benzodiazepine Screen Not Detected (NotDetected); Cocaine Metabolite Screen Not Detected (NotDetected); Medtox Control Line Valid? VALID (VALID); Medtox Reader # READER 4; Methadone Not Detected (NotDetected); Methamphetamine Not Detected (NotDetected); Opiate Screen Not Detected (NotDetected); Oxycodone Screen Not Detected (NotDetected); Phencyclidine (PCP) Not Detected (NotDetected); THC/Cannabinoid Screen Not Detected (NotDetected); Tricyclic Screen Not Detected (NotDetected)
[2019-06-03] MEDS ORDERED: Lorazepam 1 MG TAB ONE (09:03)
== END 2019-06-03 10:01 | disposition home or self-care (01) ==
LOC: ERS 07:28
DX: F41.9 Anxiety disorder, unspecified (principal); I10 Essential (primary) hypertension; Z79.899 Other long term (current) drug therapy; Z79.82 Long term (current) use of aspirin
CPT/HCPCS: 80053; 80306; 81003; 85025; 93005; 96360

== ENCOUNTER 2020-06-16 04:22 | Emergency (ER) | payer MEDICARE ==
[2020-06-16] MEDS ORDERED: Diazepam 5 MG TAB ONE (05:02)
[2020-06-16] MEDS ORDERED: Morphine 4 MG/ML VIAL ONE (05:02)
[2020-06-16] MEDS ORDERED: Ketorolac Tromethamine 30 MG/ML VIAL ONE (05:03)
== END 2020-06-16 05:19 | disposition home or self-care (01) ==
LOC: ERS 04:22
DX: R10.9 Unspecified abdominal pain (principal); I10 Essential (primary) hypertension; Z79.899 Other long term (current) drug therapy
CPT/HCPCS: 96372; 99283; J1885; J2270

== ENCOUNTER 2022-04-18 10:29 | Outpatient (CLI) | payer MEDICARE | END 2022-04-18 10:30 | disposition home or self-care (01) | PROVIDERS: ATTEND Family Medicine | DX: Z74.09 Other reduced mobility (principal) ==

== ENCOUNTER 2022-04-22 11:14 | Emergency (ER) | payer MEDICARE ==
[2022-04-22] MEDS ORDERED: Cyclobenzaprine 10 MG TAB ONE ×2 (12:17→12:18)
[2022-04-22] MEDS ORDERED: Morphine 4 MG/ML VIAL ONE (12:17)
[2022-04-22] MEDS ORDERED: Ondansetron ODT 4 MG TAB ONE (13:21)
== END 2022-04-22 14:05 | disposition home or self-care (01) ==
LOC: ERS 11:14
DX: M25.552 Pain in left hip (principal); I10 Essential (primary) hypertension; Z79.82 Long term (current) use of aspirin; Z79.899 Other long term (current) drug therapy
CPT/HCPCS: 72170; 96372; J2270; Q0162

== ENCOUNTER 2022-04-25 06:43 | Emergency (ER) | payer MEDICARE ==
[2022-04-25 07:19] LABS: #Basophils 0.1 thou/uL (0.0-0.2); #Lymphocytes 1.8 thou/uL (1.20-3.40); #Monocytes 1.2 thou/uL (0.11-0.59); #Neutrophils 9.6 thou/uL (1.40-6.50); %Basophils 0.7 % (0.0-1.0); %Eosinophils 0.3 % (0.0-10.0); %Lymphocytes 14.2 % (21.0-51.0); %Monocytes 9.1 % (0.0-10.0); %Neutrophils 75.7 % (42.0-75.0); Hemoglobin 12.9 g/dL (12.0-16.0); Mean Corpuscular HGB CONC 32.1 g/dL (32.0-36.0); Mean Corpuscular Hemoglobin 29.7 pg (27.0-31.0); Mean Corpuscular Volume 92.7 fL (78.0-98.0); Mean Platelet Volume 8.6 fL (7.4-10.4); Platelet Count 209 thou/uL (130-400); RBC Distribution Width 12.7 % (11.5-14.5); Red Blood Cell (RBC) Count 4.35 mill/uL (4.20-5.40); White Blood Cell (WBC) Count 12.7 thou/uL (4.8-10.8)
[2022-04-25 07:41] LABS: ALT (SGPT) 20 U/L (8-55); AST (SGOT) 39 U/L (5-34); Albumin 3.5 g/dL (3.4-4.8); Alkaline Phosphatase 71 U/L (40-110); Anion Gap 16 mmol/L (10-20); BUN (Urea Nitrogen) 19 mg/dL (9.8-20.1); Bilirubin, Total 0.9 mg/dL (0.2-1.2); Calc. Creatinine Clearance 0 mL/min (70-130); Calcium 9.4 mg/dL (7.8-10.44); Carbon Dioxide 25 mmol/L (23-31); Chloride 97 mmol/L (98-107); Estimated GFR 50; Globulin 4.6 g/dL (2.4-3.5); Glucose 110 mg/dL (83-110); Potassium 4.1 mmol/L (3.5-5.1); Protein, Total 8.1 g/dL (5.8-8.1); Sodium 134 mmol/L (136-145)
[2022-04-25 07:47] LABS: Magnesium 1.8 mg/dL (1.6-2.6)
[2022-04-25] MEDS ORDERED: Ondansetron PF 4 MG/2 ML Vial ONE (08:13)
[2022-04-25 08:15] LABS: Phosphorus 2.7 mg/dL (2.3-4.7)
[2022-04-25 08:49] LABS: Bilirubin Negative (Negative); Blood, Urine Large (Negative); Glucose, Urine (Dipstick) Negative (Negative); Ketone, Urine Negative (Negative); Leukocyte Large (Negative); Nitrite Negative (Negative); Protein, Urine (Dipstick) 30 mg/dL (Neg-Trace); Specific Gravity, Urine 1.015 (1.005-1.030); Urobilinogen 0.2 mg/dL (Less than 2)
[2022-04-25 08:50] LABS: Clarity Cloudy (Clear)
[2022-04-25 09:06] LABS: Bacteria/HPF 4+ HPF (None Seen); Squamous Epithelial 0-3 HPF (0-3); WBC/HPF 21-50 HPF (0-3)
[2022-04-25] MEDS ORDERED: cefTRIAXone\\ROCEPHIN 2 GM VIAL ONE (10:24)
== END 2022-04-25 12:04 | disposition home or self-care (01) ==
LOC: ERS 06:43
DX: N39.0 Urinary tract infection, site not specified (principal); R53.1 Weakness; I10 Essential (primary) hypertension; N17.9 Acute kidney failure, unspecified; Z79.899 Other long term (current) drug therapy; Z79.82 Long term (current) use of aspirin
CPT/HCPCS: 36415; 51701; 70450; 71045; 80053; 81003; 81015; 83605; 83735; 84100; 84443; 84484; 85025; 87040; 87077; 87086; 87149; 87186; 93005; 94760; 96365; J0696; J2405

== ENCOUNTER 2023-08-01 08:13 | Emergency (ER) | payer MEDICARE ==
[2023-08-01 08:55] LABS: #Eosinphils 0.2 thou/uL (0.0-0.7); #Monocytes 0.8 thou/uL (0.11-0.59); #Neutrophils 5.6 thou/uL (1.40-6.50); %Basophils 0.4 % (0.0-1.0); %Eosinophils 1.6 % (0.0-10.0); %Monocytes 7.9 % (0.0-10.0); %Neutrophils 57.9 % (42.0-75.0); Hematocrit 41.9 % (36.0-47.0); Mean Corpuscular HGB CONC 33.4 g/dL (32.0-36.0); Mean Corpuscular Hemoglobin 29.7 pg (27.0-31.0); Mean Corpuscular Volume 88.8 fl (78.0-98.0); Mean Platelet Volume 10.6 fL (7.4-10.4); Platelet Count 260 10x3/uL (130-400); RBC Distribution Width 14.3 % (11.5-14.5); Red Blood Cell (RBC) Count 4.72 mill/uL (4.20-5.40); White Blood Cell (WBC) Count 9.7 10x3/uL (4.8-10.8)
[2023-08-01 09:23] LABS: Troponin I Less than 0.010 ng/mL (< 0.028)
[2023-08-01 09:49] LABS: Albumin 4.2 g/dL (3.4-4.8)
[2023-08-01 09:50] LABS: Calcium 9.7 mg/dL (7.8-10.44); Chloride 98 mmol/L (98-107); Potassium 4.1 mmol/L (3.5-5.1); Sodium 134 mmol/L (136-145)
[2023-08-01 09:51] LABS: Globulin 4.4 g/dL (2.4-3.5); Glucose 98 mg/dL (83-110); Protein, Total 8.6 g/dL (5.8-8.1)
[2023-08-01 09:52] LABS: Anion Gap 14 mmol/L (10-20); Carbon Dioxide 26 mmol/L (23-31)
[2023-08-01 09:53] LABS: Bilirubin, Total 0.5 mg/dL (0.2-1.2)
[2023-08-01 09:53] LABS: Prothrombin Time 13.9 sec (12.0-14.7)
[2023-08-01 09:54] LABS: PTT 29.8 sec (22.9-36.1)
[2023-08-01 09:54] LABS: Alkaline Phosphatase 73 U/L (40-110); Calc. Creatinine Clearance 0 mL/min (70-130); Estimated GFR 68
[2023-08-01 09:55] LABS: BUN (Urea Nitrogen) 10 mg/dL (9.8-20.1)
[2023-08-01 09:56] LABS: AST (SGOT) 19 U/L (5-34)
[2023-08-01 09:57] LABS: ALT (SGPT) 12 U/L (8-55)
[2023-08-01 10:35] LABS: Bilirubin Negative (Negative); Blood, Urine 1+ (Negative); CAUTI Indications for Culture Pelvic or flank pain; Clarity Clear (Clear); Glucose, Urine (Dipstick) Normal (Negative); Ketone, Urine Negative (Negative); Leukocyte 250 Leu/uL (Negative); Nitrite Negative (Negative); Protein, Urine (Dipstick) Negative (Neg-Trace); RBC/HPF 0-3 HPF (0-3); Specific Gravity, Urine 1.005 (1.002-1.036); Squamous Epithelial 0-3 HPF (0-3); Urobilinogen Normal mg/dL (Less than 2)
[2023-08-01 10:36] LABS: Bacteria/HPF 1+ HPF (None Seen)
[2023-08-01 10:37] LABS: Urine Culture Reflex No No
== END 2023-08-01 11:33 | disposition home or self-care (01) ==
LOC: ERS 08:13
DX: R53.1 Weakness (principal); N39.0 Urinary tract infection, site not specified; I10 Essential (primary) hypertension
CPT/HCPCS: 36415; 70450; 71045; 80053; 81001; 83735; 83880; 84484; 85025; 85610; 85730; 93005; 94760

== ENCOUNTER 2024-07-18 18:34 | Inpatient (IN) | payer MEDICARE, OTHER ==
[2024-07-18 19:29] LABS: #Basophils 0.07 10x3/uL (0.0-0.2); %Basophils 0.6 % (0.0-1.0); %Eosinophils 3.4 % (0.0-10.0); %Lymphocytes 37.7 % (21.0-51.0); %Monocytes 6.5 % (0.0-10.0); %Neutrophils 51.4 % (42.0-75.0); Hematocrit 39.4 % (36.0-47.0); Mean Corpuscular Hemoglobin 29.5 pg (27.0-31.0); Mean Corpuscular Volume 89.5 fL (78.0-98.0); Platelet Count 271 10x3/uL (130-400); RBC Distribution Width 15.4 % (11.5-14.5)
[2024-07-18 19:43] LABS: ALT (SGPT) 9 U/L (8-55); AST (SGOT) 20 U/L (5-34); Albumin 3.6 g/dL (3.4-4.8); Alkaline Phosphatase 86 U/L (40-110); Anion Gap 14 mmol/L (10-20); BUN (Urea Nitrogen) 24 mg/dL (9.8-20.1); Bilirubin, Total 0.5 mg/dL (0.2-1.2); Calc. Creatinine Clearance 0 mL/min (70-130); Carbon Dioxide 27 mmol/L (23-31); Chloride 101 mmol/L (98-107); Estimated GFR 58; Globulin 5.3 g/dL (2.4-3.5); Glucose 98 mg/dL (83-110); Potassium 3.9 mmol/L (3.5-5.1); Protein, Total 8.9 g/dL (5.8-8.1); Sodium 138 mmol/L (136-145)
[2024-07-18 19:47] LABS: Troponin I 0.013 ng/mL (< 0.028)
[2024-07-18] MEDS ORDERED: Morphine 2 MG/ML VIAL ONE (20:34)
[2024-07-18 22:41] LABS: Bacteria/HPF 2+ HPF (None Seen); Bilirubin Negative (Negative); Blood, Urine Negative (Negative); CAUTI Indications for Culture Pelvic or flank pain; Clarity Clear (Clear); Glucose, Urine (Dipstick) Normal (Negative); Ketone, Urine Negative (Negative); Leukocyte 250 Leu/uL (Negative); Nitrite Negative (Negative); Protein, Urine (Dipstick) Negative (Neg-Trace); RBC/HPF 0-3 HPF (0-3); Specific Gravity, Urine 1.003 (1.002-1.036); Squamous Epithelial 0-3 HPF (0-3); Urobilinogen Normal mg/dL (Less than 2)
[2024-07-18 22:56] LABS: Urine Culture Reflex Yes Yes
[2024-07-19] MEDS ORDERED: cefTRIAXone (ROCEPHIN) 2 GM VIAL ONE (00:20)
[2024-07-19] MEDS ORDERED: Sodium Chloride 0.9% 100 ML ONE (00:20)
[2024-07-19] MEDS ORDERED: traMADol HCl 50 MG TAB ONE (00:20)
[2024-07-19 02:08] VITALS: BMI 36.8
[2024-07-19] MEDS: Atenolol 50 MG TAB PO SCH (08:32)
[2024-07-19] MEDS: Aspirin Chewable 81 MG TAB PO SCH (08:32)
[2024-07-19] MEDS: Verapamil 120 MG SR.TAB PO SCH (08:32)
[2024-07-19] MEDS: Hydrochlorothiazide 25 MG TAB PO SCH (08:33)
[2024-07-19] MEDS: Enoxaparin 40 MG (0.4 mL) SYRINGE SC SCH (08:33)
[2024-07-19] MEDS: Pantoprazole DR 40 MG TAB PO SCH (08:33)
[2024-07-19] MEDS: Docusate 100 MG CAP PO SCH (08:33)
[2024-07-19] MEDS: traMADol HCl 50 MG TAB PO PRN (13:44)
[2024-07-19] MEDS: Atorvastatin Calcium 40 MG TAB PO SCH (22:21)
[2024-07-20] MEDS: cefTRIAXone\\ROCEPHIN 2 GM in Sodium Chloride 0.9% 100 ML IVPB SCH (00:25)
[2024-07-20] MEDS: Sodium Chloride 0.9% 100 ML ONE (00:26)
[2024-07-20] MEDS: Polyethylene Glycol 3350 17 GM Packet PO SCH (09:17)
[2024-07-21] MEDS: hydrOXYzine 10 MG TAB PO PRN (20:41)
[2024-07-23] MEDS: Methocarbamol 500 MG TAB PO SCH (09:14)
[2024-07-23 09:37] LABS: #Basophils Less than 0.03 10x3/uL (0.0-0.2); %Basophils 0.2 % (0.0-1.0); %Eosinophils 1.6 % (0.0-10.0); %Lymphocytes 24.5 % (21.0-51.0); %Neutrophils 65.4 % (42.0-75.0); Hematocrit 37.8 % (36.0-47.0); Hemoglobin 12.9 g/dL (12.0-16.0); Mean Corpuscular HGB CONC 34.1 g/dL (32.0-36.0); Mean Corpuscular Hemoglobin 29.7 pg (27.0-31.0); Mean Corpuscular Volume 87.1 fL (78.0-98.0); Mean Platelet Volume 11.2 fL (7.4-10.4); Platelet Count 224 10x3/uL (130-400); RBC Distribution Width 14.8 % (11.5-14.5); Red Blood Cell (RBC) Count 4.34 mill/uL (4.20-5.40)
[2024-07-23 09:54] LABS: Anion Gap 12 mmol/L (10-20); BUN (Urea Nitrogen) 15 mg/dL (9.8-20.1); Calc. Creatinine Clearance 86 mL/min (70-130); Calcium 9.5 mg/dL (7.8-10.44); Carbon Dioxide 25 mmol/L (23-31); Chloride 102 mmol/L (98-107); Estimated GFR 67; Glucose 107 mg/dL (83-110); Potassium 3.4 mmol/L (3.5-5.1); Sodium 136 mmol/L (136-145)
[2024-07-23] MEDS: Lidocaine 4% Patch TD SCH (13:47)
[2024-07-23 16:33] VITALS: BP 124/81; TEMP 99.1
[2024-07-24] MEDS ORDERED: LIDOCAINE Patch Removal TOP SCH (02:00)
== END 2024-07-23 17:00 | DRG 690 ==
LOC: ERS 18:34 → T4-A 07-19 01:29 → OBSVTOIN 07-20 17:36
PROVIDERS: ADMIT Family Medicine; ATTEND Family Medicine
DX: N39.0 Urinary tract infection, site not specified (principal); T84.022A Instability of internal right knee prosthesis, initial encounter; I10 Essential (primary) hypertension; M19.90 Unspecified osteoarthritis, unspecified site; D50.9 Iron deficiency anemia, unspecified; D89.2 Hypergammaglobulinemia, unspecified; E55.9 Vitamin D deficiency, unspecified; E78.5 Hyperlipidemia, unspecified; K21.9 Gastro-esophageal reflux disease without esophagitis; F41.9 Anxiety disorder, unspecified; Z66 Do not resuscitate; M17.11 Unilateral primary osteoarthritis, right knee; Z79.899 Other long term (current) drug therapy; Z79.82 Long term (current) use of aspirin
CPT/HCPCS: 36415; 71045; 72040; 80048; 80053; 81001; 82550; 83735; 83880; 84484; 85025; 87086; 93005; 96372; 96376; G0378; J0696; J1650; J2272

== ENCOUNTER 2025-08-22 15:20 | Inpatient (IN) | payer MEDICARE, MEDICAID ==
[~2025-08-22 15:20] MED LIST changes: -ISOVUE-370 76%-LOCM 1 ML ONE; +Iopamidol-370 76% 500 ML MDV (1 ML CHARGE) ONE
[2025-08-22 16:09] LABS: #Basophils 0.03 10x3/uL (0.0-0.2); #Eosinophils 0.79 10x3/uL (0.0-0.7); #Monocytes 0.76 10x3/uL (0.11-0.59); #Neutrophils 5.91 10x3/uL (1.40-6.50); %Basophils 0.3 % (0.0-1.0); %Eosinophils 7.5 % (0.0-10.0); %Lymphocytes 28.6 % (21.0-51.0); %Monocytes 7.2 % (0.0-10.0); %Neutrophils 55.8 % (42.0-75.0); Hematocrit 32.3 % (36.0-47.0); Hemoglobin 10.0 g/dL (12.0-16.0); Mean Corpuscular Hemoglobin 28.4 pg (27.0-31.0); Mean Corpuscular Volume 91.8 fL (78.0-98.0); Platelet Count 261 10x3/uL (130-400); Red Blood Cell (RBC) Count 3.52 mill/uL (4.20-5.40); White Blood Cell (WBC) Count 10.58 10x3/uL (4.8-10.8)
[2025-08-22 16:30] LABS: ALT (SGPT) 11 U/L (Less than 34); AST (SGOT) 20 U/L (11-34); Albumin 2.9 g/dL (3.1-4.5); Alkaline Phosphatase 79 U/L (40-110); Anion Gap 18 mmol/L (10-20); BUN (Urea Nitrogen) 28 mg/dL (9.8-20.1); Bilirubin, Total 0.3 mg/dL (0.3-1.2); Calc. Creatinine Clearance 0 mL/min (70-130); Calcium 8.8 mg/dL (7.8-10.44); Carbon Dioxide 24 mmol/L (23-31); Chloride 109 mmol/L (98-107); Globulin 4.5 g/dL (2.4-3.5); Glucose 100 mg/dL (83-110); Potassium 4.7 mmol/L (3.5-5.1); Sodium 146 mmol/L (136-145)
[2025-08-22 16:31] LABS: INR-International Normal Ratio 1.1; Prothrombin Time 13.9 sec (12.0-14.7)
[2025-08-22 16:32] LABS: PTT 31.9 sec (22.9-36.1)
[2025-08-22] MEDS: Pantoprazole 40 MG VIAL IVP SCH (21:30)
[2025-08-22] MEDS ORDERED: Nitroglycerin 0.4 MG TAB (25 Tab Bottle) SL PRN (22:06)
[2025-08-22] MEDS ORDERED: Preparation H Ointment 57 gram tube RC SCH (22:15)
[2025-08-22 22:21] LABS: Hematocrit 29.5 % (36.0-47.0); Hemoglobin 9.2 g/dL (12.0-16.0)
[2025-08-22] MEDS: Preparation H Ointment 28 GM TUBE TOP SCH (22:56)
[2025-08-22] MEDS: Calcium Carbonate 500 MG ChewTAB PO SCH (23:07)
[2025-08-23 02:37] LABS: #Basophils 0.04 10x3/uL (0.0-0.2); #Eosinophils 0.78 10x3/uL (0.0-0.7); #Monocytes 0.97 10x3/uL (0.11-0.59); #Neutrophils 7.37 10x3/uL (1.40-6.50); %Basophils 0.3 % (0.0-1.0); %Eosinophils 6.3 % (0.0-10.0); %Lymphocytes 25.9 % (21.0-51.0); %Monocytes 7.8 % (0.0-10.0); %Neutrophils 59.4 % (42.0-75.0); Hematocrit 28.8 % (36.0-47.0); Hemoglobin 9.0 g/dL (12.0-16.0); Mean Corpuscular Hemoglobin 28.5 pg (27.0-31.0); Mean Corpuscular Volume 91.1 fL (78.0-98.0); Platelet Count 234 10x3/uL (130-400); Red Blood Cell (RBC) Count 3.16 mill/uL (4.20-5.40); White Blood Cell (WBC) Count 12.41 10x3/uL (4.8-10.8)
[2025-08-23 03:08] LABS: ALT (SGPT) 10 U/L (Less than 34); AST (SGOT) 21 U/L (11-34); Albumin 2.5 g/dL (3.1-4.5); Alkaline Phosphatase 62 U/L (40-110); Anion Gap 10 mmol/L (10-20); BUN (Urea Nitrogen) 25 mg/dL (9.8-20.1); Bilirubin, Total 0.4 mg/dL (0.3-1.2); Calc. Creatinine Clearance 58 mL/min (70-130); Calcium 8.2 mg/dL (7.8-10.44); Carbon Dioxide 23 mmol/L (23-31); Chloride 110 mmol/L (98-107); Globulin 3.8 g/dL (2.4-3.5); Glucose 90 mg/dL (83-110); Potassium 4.5 mmol/L (3.5-5.1); Sodium 138 mmol/L (136-145)
[2025-08-23] MEDS: Aquaphor 2.8 oz 80 GM JAR TOP SCH (10:18)
[2025-08-23] MEDS: Calcium Carbonate 500 MG ChewTAB PO SCH (10:18)
[2025-08-23] MEDS: Clotrimazole 1 % Cream 30 GM TUBE TOP SCH (10:20)
[2025-08-23] MEDS ORDERED: Hydrocortisone Acetate 25 MG Suppository PR PRN (11:33)
[2025-08-23] MEDS: Acetaminophen 500 MG TAB PO PRN (16:02)
[2025-08-23] MEDS: Simethicone Chewable 80 MG TAB PO PRN (16:02)
[2025-08-23] MEDS: Acetaminophen 325 MG TAB PO SCH (20:30)
[2025-08-24 04:11] LABS: #Basophils 0.03 10x3/uL (0.0-0.2); #Eosinophils 0.74 10x3/uL (0.0-0.7); #Monocytes 0.70 10x3/uL (0.11-0.59); #Neutrophils 4.34 10x3/uL (1.40-6.50); %Basophils 0.3 % (0.0-1.0); %Eosinophils 7.8 % (0.0-10.0); %Lymphocytes 38.2 % (21.0-51.0); %Monocytes 7.4 % (0.0-10.0); %Neutrophils 45.9 % (42.0-75.0); Hematocrit 27.3 % (36.0-47.0); Hemoglobin 8.6 g/dL (12.0-16.0); Mean Corpuscular Hemoglobin 28.8 pg (27.0-31.0); Mean Corpuscular Volume 91.3 fL (78.0-98.0); Platelet Count 212 10x3/uL (130-400); Red Blood Cell (RBC) Count 2.99 mill/uL (4.20-5.40); White Blood Cell (WBC) Count 9.46 10x3/uL (4.8-10.8)
[2025-08-24 04:35] LABS: ALT (SGPT) 7 U/L (Less than 34); AST (SGOT) 19 U/L (11-34); Albumin 2.3 g/dL (3.1-4.5); Alkaline Phosphatase 55 U/L (40-110); Anion Gap 10 mmol/L (10-20); BUN (Urea Nitrogen) 20 mg/dL (9.8-20.1); Bilirubin, Total 0.4 mg/dL (0.3-1.2); Calc. Creatinine Clearance 76 mL/min (70-130); Calcium 8.5 mg/dL (7.8-10.44); Carbon Dioxide 24 mmol/L (23-31); Chloride 111 mmol/L (98-107); Globulin 3.8 g/dL (2.4-3.5); Glucose 79 mg/dL (83-110); Potassium 4.3 mmol/L (3.5-5.1); Sodium 141 mmol/L (136-145)
[2025-08-24] MEDS: Verapamil 120 MG SR.TAB PO SCH (09:45)
[2025-08-24] MEDS: Atenolol 50 MG TAB PO SCH (09:47)
[2025-08-24] MEDS ORDERED: Glycerin Pediatric Sup. (4ml) PR PRN (09:59)
[2025-08-24] MEDS: Nystatin Powder 15 GM BOT TOP SCH ×2 (12:34→21:45)
[2025-08-24] MEDS ORDERED: GoLYTELY 4,000 ml Bottle PO SCH (13:45)
[2025-08-24 16:11] LABS: Hematocrit 26.9 % (36.0-47.0); Hemoglobin 8.4 g/dL (12.0-16.0)
[2025-08-24] MEDS: GoLYTELY 4,000 ml Bottle PO SCH (16:26)
[2025-08-24 23:52] LABS: Campy jejuni + coli by PCR Negative (Negative); STEC Shiga Toxin 1+2 Negative (Negative); Salmonella spp. by PCR Negative (Negative); Shigella spp + EIEC by PCR Negative (Negative)
[2025-08-25 01:40] LABS: Hematocrit 26.4 % (36.0-47.0); Hemoglobin 8.4 g/dL (12.0-16.0)
[2025-08-25 04:31] LABS: #Basophils 0.03 10x3/uL (0.0-0.2); #Eosinophils 0.42 10x3/uL (0.0-0.7); #Monocytes 0.87 10x3/uL (0.11-0.59); #Neutrophils 10.65 10x3/uL (1.40-6.50); %Basophils 0.2 % (0.0-1.0); %Eosinophils 2.8 % (0.0-10.0); %Lymphocytes 19.3 % (21.0-51.0); %Monocytes 5.8 % (0.0-10.0); %Neutrophils 71.5 % (42.0-75.0); Hematocrit 26.7 % (36.0-47.0); Hemoglobin 8.4 g/dL (12.0-16.0); Mean Corpuscular Hemoglobin 28.8 pg (27.0-31.0); Mean Corpuscular Volume 91.4 fL (78.0-98.0); Platelet Count 198 10x3/uL (130-400); Red Blood Cell (RBC) Count 2.92 mill/uL (4.20-5.40); White Blood Cell (WBC) Count 14.90 10x3/uL (4.8-10.8)
[2025-08-25 04:53] LABS: ALT (SGPT) 9 U/L (Less than 34); AST (SGOT) 21 U/L (11-34); Albumin 2.4 g/dL (3.1-4.5); Alkaline Phosphatase 51 U/L (40-110); Anion Gap 17 mmol/L (10-20); BUN (Urea Nitrogen) 18 mg/dL (9.8-20.1); Bilirubin, Total 0.5 mg/dL (0.3-1.2); Calc. Creatinine Clearance 87 mL/min (70-130); Calcium 8.3 mg/dL (7.8-10.44); Carbon Dioxide 20 mmol/L (23-31); Chloride 109 mmol/L (98-107); Globulin 3.5 g/dL (2.4-3.5); Glucose 95 mg/dL (83-110); Potassium 4.3 mmol/L (3.5-5.1); Sodium 142 mmol/L (136-145)
[2025-08-25] MEDS ORDERED: PROPOFOL 200 MG/20 ML VIAL ONE (10:37)
[2025-08-25] MEDS ORDERED: PHENYLEPHRINE-NS 100 MCG/ML 10 ML SYRINGE ONE ×2 (11:09→11:20)
[2025-08-26 04:18] LABS: #Basophils Less than 0.03 10x3/uL (0.0-0.2); #Eosinophils 0.66 10x3/uL (0.0-0.7); #Monocytes 0.72 10x3/uL (0.11-0.59); #Neutrophils 5.36 10x3/uL (1.40-6.50); %Basophils 0.1 % (0.0-1.0); %Eosinophils 6.7 % (0.0-10.0); %Lymphocytes 31.3 % (21.0-51.0); %Monocytes 7.3 % (0.0-10.0); %Neutrophils 54.2 % (42.0-75.0); Hematocrit 21.0 % (36.0-47.0); Hemoglobin 6.6 g/dL (12.0-16.0); Mean Corpuscular Hemoglobin 28.7 pg (27.0-31.0); Mean Corpuscular Volume 91.3 fL (78.0-98.0); Platelet Count 167 10x3/uL (130-400); Red Blood Cell (RBC) Count 2.30 mill/uL (4.20-5.40); White Blood Cell (WBC) Count 9.88 10x3/uL (4.8-10.8)
[2025-08-26 04:41] LABS: ALT (SGPT) 8 U/L (Less than 34); AST (SGOT) 16 U/L (11-34); Albumin 2.1 g/dL (3.1-4.5); Alkaline Phosphatase 44 U/L (40-110); Anion Gap 8 mmol/L (10-20); BUN (Urea Nitrogen) 11 mg/dL (9.8-20.1); Bilirubin, Total 0.5 mg/dL (0.3-1.2); Calc. Creatinine Clearance 84 mL/min (70-130); Calcium 8.0 mg/dL (7.8-10.44); Carbon Dioxide 24 mmol/L (23-31); Chloride 111 mmol/L (98-107); Globulin 2.9 g/dL (2.4-3.5); Glucose 84 mg/dL (83-110); Potassium 3.7 mmol/L (3.5-5.1); Sodium 139 mmol/L (136-145)
[2025-08-26] MEDS: Metoprolol Tartrate 5 MG (5 mL) VIAL IVP SCH (06:20)
[2025-08-26 07:18] LABS: Hematocrit 22.8 % (36.0-47.0); Hemoglobin 7.1 g/dL (12.0-16.0)
[2025-08-26] MEDS: Digoxin 0.5 MG/2 ML AMP SLOW IVP SCH ×2 (11:07→17:11)
[2025-08-26 17:00] VITALS: BMI 36.6
[2025-08-26] MEDS ORDERED: Digoxin 0.5 MG/2 ML AMP SLOW IVP SCH (19:00)
[2025-08-26 20:36] LABS: Hematocrit 25.9 % (36.0-47.0); Hemoglobin 8.1 g/dL (12.0-16.0)
[2025-08-27 03:49] LABS: #Basophils Less than 0.03 10x3/uL (0.0-0.2); #Eosinophils 0.61 10x3/uL (0.0-0.7); #Monocytes 0.71 10x3/uL (0.11-0.59); #Neutrophils 6.34 10x3/uL (1.40-6.50); %Basophils 0.2 % (0.0-1.0); %Eosinophils 5.5 % (0.0-10.0); %Lymphocytes 30.4 % (21.0-51.0); %Monocytes 6.4 % (0.0-10.0); %Neutrophils 57.0 % (42.0-75.0); Hematocrit 23.6 % (36.0-47.0); Hemoglobin 7.5 g/dL (12.0-16.0); Mean Corpuscular Hemoglobin 27.6 pg (27.0-31.0); Mean Corpuscular Volume 86.8 fL (78.0-98.0); Platelet Count 148 10x3/uL (130-400); Red Blood Cell (RBC) Count 2.72 mill/uL (4.20-5.40); White Blood Cell (WBC) Count 11.12 10x3/uL (4.8-10.8)
[2025-08-27 04:16] LABS: ALT (SGPT) 8 U/L (Less than 34); AST (SGOT) 19 U/L (11-34); Albumin 2.2 g/dL (3.1-4.5); Alkaline Phosphatase 44 U/L (40-110); Anion Gap 8 mmol/L (10-20); BUN (Urea Nitrogen) 12 mg/dL (9.8-20.1); Bilirubin, Total 1.0 mg/dL (0.3-1.2); Calc. Creatinine Clearance 87 mL/min (70-130); Calcium 7.9 mg/dL (7.8-10.44); Carbon Dioxide 25 mmol/L (23-31); Chloride 110 mmol/L (98-107); Globulin 3.0 g/dL (2.4-3.5); Glucose 76 mg/dL (83-110); Potassium 3.7 mmol/L (3.5-5.1); Sodium 139 mmol/L (136-145)
[2025-08-27] MEDS: Ondansetron PF 4 MG/2 ML Vial IVP PRN (11:35)
[2025-08-27 18:20] LABS: Hematocrit 31.6 % (36.0-47.0); Hemoglobin 10.2 g/dL (12.0-16.0)
[2025-08-28 04:07] LABS: #Basophils Less than 0.03 10x3/uL (0.0-0.2); #Eosinophils 0.66 10x3/uL (0.0-0.7); #Monocytes 0.94 10x3/uL (0.11-0.59); #Neutrophils 7.29 10x3/uL (1.40-6.50); %Basophils 0.2 % (0.0-1.0); %Eosinophils 5.4 % (0.0-10.0); %Lymphocytes 26.2 % (21.0-51.0); %Monocytes 7.8 % (0.0-10.0); %Neutrophils 60.1 % (42.0-75.0); Hematocrit 28.5 % (36.0-47.0); Hemoglobin 9.1 g/dL (12.0-16.0); Mean Corpuscular Hemoglobin 27.8 pg (27.0-31.0); Mean Corpuscular Volume 87.2 fL (78.0-98.0); Platelet Count 164 10x3/uL (130-400); Red Blood Cell (RBC) Count 3.27 mill/uL (4.20-5.40); White Blood Cell (WBC) Count 12.12 10x3/uL (4.8-10.8)
[2025-08-28 04:34] LABS: ALT (SGPT) 8 U/L (Less than 34); AST (SGOT) 20 U/L (11-34); Albumin 2.3 g/dL (3.1-4.5); Alkaline Phosphatase 50 U/L (40-110); Anion Gap 9 mmol/L (10-20); BUN (Urea Nitrogen) 13 mg/dL (9.8-20.1); Bilirubin, Total 0.9 mg/dL (0.3-1.2); Calc. Creatinine Clearance 84 mL/min (70-130); Calcium 7.9 mg/dL (7.8-10.44); Carbon Dioxide 24 mmol/L (23-31); Chloride 108 mmol/L (98-107); Globulin 3.0 g/dL (2.4-3.5); Glucose 77 mg/dL (83-110); Potassium 3.7 mmol/L (3.5-5.1); Sodium 137 mmol/L (136-145)
[2025-08-28 10:42] VITALS: BMI 36.5
[2025-08-28 17:01] LABS: Hematocrit 26.9 % (36.0-47.0); Hemoglobin 8.7 g/dL (12.0-16.0); Mean Corpuscular Hemoglobin 28.5 pg (27.0-31.0); Mean Corpuscular Volume 88.2 fL (78.0-98.0); Platelet Count 177 10x3/uL (130-400); Red Blood Cell (RBC) Count 3.05 mill/uL (4.20-5.40); White Blood Cell (WBC) Count 11.01 10x3/uL (4.8-10.8)
[2025-08-29 00:06] LABS: Hematocrit 30.2 % (36.0-47.0); Hemoglobin 9.3 g/dL (12.0-16.0); Mean Corpuscular Hemoglobin 28.1 pg (27.0-31.0); Mean Corpuscular Volume 91.2 fL (78.0-98.0); Platelet Count 174 10x3/uL (130-400); Red Blood Cell (RBC) Count 3.31 mill/uL (4.20-5.40); White Blood Cell (WBC) Count 12.43 10x3/uL (4.8-10.8)
[2025-08-29 05:01] LABS: #Basophils Less than 0.03 10x3/uL (0.0-0.2); #Eosinophils 0.83 10x3/uL (0.0-0.7); #Monocytes 0.84 10x3/uL (0.11-0.59); #Neutrophils 7.57 10x3/uL (1.40-6.50); %Basophils 0.2 % (0.0-1.0); %Eosinophils 7.0 % (0.0-10.0); %Lymphocytes 21.9 % (21.0-51.0); %Monocytes 7.0 % (0.0-10.0); %Neutrophils 63.5 % (42.0-75.0); Hematocrit 28.9 % (36.0-47.0); Hemoglobin 9.1 g/dL (12.0-16.0); Mean Corpuscular Hemoglobin 28.2 pg (27.0-31.0); Mean Corpuscular Volume 89.5 fL (78.0-98.0); Platelet Count 188 10x3/uL (130-400); Red Blood Cell (RBC) Count 3.23 mill/uL (4.20-5.40); White Blood Cell (WBC) Count 11.92 10x3/uL (4.8-10.8)
[2025-08-29 05:17] LABS: ALT (SGPT) 9 U/L (Less than 34); AST (SGOT) 17 U/L (11-34); Albumin 2.4 g/dL (3.1-4.5); Alkaline Phosphatase 52 U/L (40-110); Anion Gap 11 mmol/L (10-20); BUN (Urea Nitrogen) 12 mg/dL (9.8-20.1); Bilirubin, Total 0.6 mg/dL (0.3-1.2); Calc. Creatinine Clearance 80 mL/min (70-130); Calcium 8.1 mg/dL (7.8-10.44); Carbon Dioxide 23 mmol/L (23-31); Chloride 109 mmol/L (98-107); Globulin 3.2 g/dL (2.4-3.5); Glucose 96 mg/dL (83-110); Potassium 3.8 mmol/L (3.5-5.1); Sodium 139 mmol/L (136-145)
[2025-08-30 04:59] LABS: #Basophils 0.03 10x3/uL (0.0-0.2); #Eosinophils 0.80 10x3/uL (0.0-0.7); #Monocytes 0.92 10x3/uL (0.11-0.59); #Neutrophils 7.85 10x3/uL (1.40-6.50); %Basophils 0.2 % (0.0-1.0); %Eosinophils 6.5 % (0.0-10.0); %Lymphocytes 22.1 % (21.0-51.0); %Monocytes 7.4 % (0.0-10.0); %Neutrophils 63.3 % (42.0-75.0); Hematocrit 29.8 % (36.0-47.0); Hemoglobin 9.3 g/dL (12.0-16.0); Mean Corpuscular Hemoglobin 28.3 pg (27.0-31.0); Mean Corpuscular Volume 90.6 fL (78.0-98.0); Platelet Count 202 10x3/uL (130-400); Red Blood Cell (RBC) Count 3.29 mill/uL (4.20-5.40); White Blood Cell (WBC) Count 12.40 10x3/uL (4.8-10.8)
[2025-08-30 05:17] LABS: ALT (SGPT) 8 U/L (Less than 34); AST (SGOT) 18 U/L (11-34); Albumin 2.6 g/dL (3.1-4.5); Alkaline Phosphatase 59 U/L (40-110); Anion Gap 11 mmol/L (10-20); BUN (Urea Nitrogen) 11 mg/dL (9.8-20.1); Bilirubin, Total 0.5 mg/dL (0.3-1.2); Calc. Creatinine Clearance 83 mL/min (70-130); Calcium 8.3 mg/dL (7.8-10.44); Carbon Dioxide 24 mmol/L (23-31); Chloride 107 mmol/L (98-107); Globulin 3.3 g/dL (2.4-3.5); Glucose 93 mg/dL (83-110); Potassium 3.8 mmol/L (3.5-5.1); Sodium 138 mmol/L (136-145)
[2025-08-31] MEDS ORDERED: diphenhydrAMINE 30 GM TUBE TOP PRN (08:18)
[2025-08-31 09:02] LABS: #Basophils 0.03 10x3/uL (0.0-0.2); #Eosinophils 0.71 10x3/uL (0.0-0.7); #Monocytes 0.79 10x3/uL (0.11-0.59); #Neutrophils 7.60 10x3/uL (1.40-6.50); %Basophils 0.3 % (0.0-1.0); %Eosinophils 6.0 % (0.0-10.0); %Lymphocytes 22.8 % (21.0-51.0); %Monocytes 6.6 % (0.0-10.0); %Neutrophils 63.9 % (42.0-75.0); Hematocrit 29.7 % (36.0-47.0); Hemoglobin 9.8 g/dL (12.0-16.0); Mean Corpuscular Hemoglobin 28.7 pg (27.0-31.0); Mean Corpuscular Volume 87.1 fL (78.0-98.0); Platelet Count 218 10x3/uL (130-400); Red Blood Cell (RBC) Count 3.41 mill/uL (4.20-5.40); White Blood Cell (WBC) Count 11.89 10x3/uL (4.8-10.8)
[2025-08-31 09:21] LABS: ALT (SGPT) 8 U/L (Less than 34); AST (SGOT) 16 U/L (11-34); Albumin 2.6 g/dL (3.1-4.5); Alkaline Phosphatase 59 U/L (40-110); Anion Gap 11 mmol/L (10-20); BUN (Urea Nitrogen) 11 mg/dL (9.8-20.1); Bilirubin, Total 0.5 mg/dL (0.3-1.2); Calc. Creatinine Clearance 85 mL/min (70-130); Calcium 8.5 mg/dL (7.8-10.44); Carbon Dioxide 24 mmol/L (23-31); Chloride 106 mmol/L (98-107); Globulin 3.7 g/dL (2.4-3.5); Glucose 104 mg/dL (83-110); Potassium 3.6 mmol/L (3.5-5.1); Sodium 137 mmol/L (136-145)
[2025-08-31 11:50] VITALS: BP 115/58; TEMP 97.9
[2025-08-31] MEDS: diphenhydrAMINE 30 GM TUBE TOP PRN (14:10)
== END 2025-08-31 14:45 | DRG 394 ==
LOC: ERS 15:20 → ERHOLD 18:05 → 2SE 20:36
PROVIDERS: ADMIT Internal Medicine; ATTEND Internal Medicine
PROC: 0DB78ZX Excision of Stomach, Pylorus, Via Natural or Artificial Opening Endoscopic, Diagnostic (ICD-10-PCS; principal; 2025-08-25)
PROC: 0DJD8ZZ Inspection of Lower Intestinal Tract, Via Natural or Artificial Opening Endoscopic (ICD-10-PCS; 2025-08-25)
DX: K64.9 Unspecified hemorrhoids (principal); D62 Acute posthemorrhagic anemia; I48.92 Unspecified atrial flutter; K60.30 Anal fistula, unspecified; I10 Essential (primary) hypertension; E78.5 Hyperlipidemia, unspecified; L30.4 Erythema intertrigo; I48.91 Unspecified atrial fibrillation; E55.9 Vitamin D deficiency, unspecified; K25.9 Gastric ulcer, unspecified as acute or chronic, without hemorrhage or perforation; K57.90 Diverticulosis of intestine, part unspecified, without perforation or abscess without bleeding; L29.9 Pruritus, unspecified; K21.9 Gastro-esophageal reflux disease without esophagitis; Z79.899 Other long term (current) drug therapy; Z66 Do not resuscitate; Z88.8 Allergy status to other drugs, medicaments and biological substances
CPT/HCPCS: 36415; 36416; 36430; 74177; 80053; 82274; 83605; 85025; 85610; 85730; 86850; 86870; 86900; 86901; 86922; 87505; 88305; 88342; 93005; 93010; 93306; 96361; 96365; J1160; J2405; J2470; J2704; J7120; P9016; Q9967